=== PATIENT | female | born 1935 | race Caucasian/White ===

== ENCOUNTER 2017-04-06 04:26 | Emergency (ER) | payer MEDICARE ==
[~2017-04-06] VITALS: Ht 152.4 cm; Wt 100.0 kg
[~2017-04-06 04:26] MED LIST: CHOL100015 PO; LEVO25TA4 PO; LISI5TAB7 PO; NITR100C PO
[2017-04-06] MEDS ORDERED: ONDANSETRON 2MG/ML, 2ML ONE (04:50)
[2017-04-06] MEDS ORDERED: FAMOTIDINE 20 MG/2 ML ONE (04:50)
[2017-04-06] MEDS ORDERED: SODIUM CHLORIDE FLUSH 10ML SYR IVF ONE (05:00)
[2017-04-06] MEDS ORDERED: FAMOTIDINE 20 MG/2 ML IVP ONE (05:00)
[2017-04-06] MEDS ORDERED: SODIUM CHLORIDE 0.9% 1,000ML IVBOLUS ONE (05:00)
[2017-04-06] MEDS ORDERED: ONDANSETRON 2MG/ML, 2ML IVPush ONE (05:00)
[2017-04-06 05:29] LABS: CHLORIDE 112 mmol/L (98-107)
[2017-04-06 05:30] LABS: BASOPHILS % (AUTO) 0 % (0-1); EOSINOPHILS # (AUTO) 0.03 x10^3/uL (0-0.4); EOSINOPHILS % (AUTO) 0 % (1-7); LYMPHOCYTES # (AUTO) 0.14 x10^3/uL (1-3.4); LYMPHOCYTES % (AUTO) 2 % (22-44); MD NO; MEAN CORPUSCULAR HEMOGLOBIN 30.3 pg (27.0-34.8); MEAN CORPUSCULAR HGB CONC 33.8 g/dL (32.4-35.8); MEAN CORPUSCULAR VOLUME 89.7 fL (80-100); MEAN PLATELET VOLUME 8.8 fL (7.4-10.4); MONOCYTES # (AUTO) 0.26 x10^3/uL (0.2-0.8); MONOCYTES % (AUTO) 4 % (2-9); NEUTROPHILS # (AUTO) 6.86 x10^3/uL (1.8-6.8); NEUTROPHILS % (AUTO) 94 % (42-75); PLATELET COUNT 151 x10^3/uL (130-400); RED BLOOD COUNT 5.13 x10^6/uL (3.82-5.3); RED CELL DISTRIBUTION WIDTH 13.9 % (9.6-15.2)
[2017-04-06 05:33] VITALS: BP 118/59
[2017-04-06 05:42] LABS: ALANINE AMINOTRANSFERASE 14 U/L (12-78); ALBUMIN 3.4 g/dL (3.4-5.0); ALKALINE PHOSPHATASE 40 U/L (45-117); ANION GAP 10 mmol/L (5-15); BILIRUBIN,TOTAL 1.1 mg/dL (0.2-1.0); CALCIUM 7.8 mg/dL (8.5-10.1); CREATININE 0.95 mg/dL (0.55-1.02); TOTAL PROTEIN 6.1 g/dL (6.4-8.2)
== END 2017-04-06 09:14 | disposition home or self-care (01) ==
LOC: ED 07:11
DX: R11.2 Nausea with vomiting, unspecified (principal); R19.7 Diarrhea, unspecified; I10 Essential (primary) hypertension; Z90.49 Acquired absence of other specified parts of digestive tract; Z90.710 Acquired absence of both cervix and uterus
CPT/HCPCS: 36415; 80053; 83690; 85025; 96361; 96374; 96375; 99285; J2405; J7030; S0028

== ENCOUNTER 2017-08-14 18:22 | Emergency (ER) | payer MEDICARE ==
[~2017-08-14] VITALS: Ht 149.9 cm; Wt 58.4 kg
[2017-08-14] MEDS ORDERED: LISINOPRIL PO (18:46)
[2017-08-14 18:48] LABS: BASOPHILS # (AUTO) 0.02 x10^3/uL (0-0.1); BASOPHILS % (AUTO) 0 % (0-1); EOSINOPHILS # (AUTO) 0.06 x10^3/uL (0-0.4); EOSINOPHILS % (AUTO) 1 % (1-7); LYMPHOCYTES # (AUTO) 1.61 x10^3/uL (1-3.4); LYMPHOCYTES % (AUTO) 34 % (22-44); MD NO; MEAN CORPUSCULAR HEMOGLOBIN 30.8 pg (27.0-34.8); MEAN CORPUSCULAR HGB CONC 34.2 g/dL (32.4-35.8); MEAN PLATELET VOLUME 8.3 fL (7.4-10.4); MONOCYTES # (AUTO) 0.34 x10^3/uL (0.2-0.8); MONOCYTES % (AUTO) 7 % (2-9); NEUTROPHILS # (AUTO) 2.76 x10^3/uL (1.8-6.8); NEUTROPHILS % (AUTO) 58 % (42-75); PLATELET COUNT 175 x10^3/uL (130-400); RED BLOOD COUNT 4.83 x10^6/uL (3.82-5.3); RED CELL DISTRIBUTION WIDTH 13.7 % (9.6-15.2)
[2017-08-14] MEDS ORDERED: DEXAMETHASONE 4 MG/ML, 5ML ONE (18:56)
[2017-08-14 18:59] LABS: ALBUMIN 3.5 g/dL (3.4-5.0); ANION GAP 7 mmol/L (5-15); CALCIUM 8.8 mg/dL (8.5-10.1); CHLORIDE 107 mmol/L (98-107); CREATININE 0.97 mg/dL (0.55-1.02)
[2017-08-14] MEDS ORDERED: DEXAMETHASONE 4 MG/ML, 1ML IV ONE (19:00)
[2017-08-14] MEDS ORDERED: SODIUM CHLORIDE FLUSH 10ML SYR IVF ONE (19:00)
[2017-08-14] MEDS ORDERED: PLEASE ENTER HEIGHT AND WEIGHT MC SCH (19:00)
[2017-08-14 19:46] LABS: MICROSCOPIC AUTO
[2017-08-14 19:54] LABS: CULTURE INDICATED? NO
[2017-08-14 21:02] LABS: TROPONIN I < 0.015 ng/mL (0.000-0.045)
[2017-08-14 22:43] VITALS: BP 184/93
== END 2017-08-14 22:45 | disposition home or self-care (01) ==
LOC: ED 20:21
DX: J38.1 Polyp of vocal cord and larynx (principal); I10 Essential (primary) hypertension; Z90.49 Acquired absence of other specified parts of digestive tract; Z90.710 Acquired absence of both cervix and uterus
CPT/HCPCS: 36415; 70360; 71045; 80048; 81001; 82040; 83880; 84484; 85025; 85379; 93005; 96374; 99285; J1100

== ENCOUNTER 2017-08-16 20:29 | Emergency (ER) | payer MEDICARE ==
[~2017-08-16] VITALS: Ht 152.4 cm; Wt 56.8 kg
[~2017-08-16 20:29] MED LIST changes: +LISINOPRIL PO
[2017-08-16 21:52] LABS: BASOPHILS # (AUTO) 0.04 x10^3/uL (0-0.1); BASOPHILS % (AUTO) 1 % (0-1); EOSINOPHILS # (AUTO) 0.03 x10^3/uL (0-0.4); EOSINOPHILS % (AUTO) 1 % (1-7); LYMPHOCYTES # (AUTO) 2.75 x10^3/uL (1-3.4); LYMPHOCYTES % (AUTO) 46 % (22-44); MD NO; MEAN CORPUSCULAR HEMOGLOBIN 30.4 pg (27.0-34.8); MEAN CORPUSCULAR HGB CONC 33.9 g/dL (32.4-35.8); MEAN CORPUSCULAR VOLUME 89.8 fL (80-100); MEAN PLATELET VOLUME 8.4 fL (7.4-10.4); MONOCYTES # (AUTO) 0.48 x10^3/uL (0.2-0.8); MONOCYTES % (AUTO) 8 % (2-9); NEUTROPHILS # (AUTO) 2.67 x10^3/uL (1.8-6.8); NEUTROPHILS % (AUTO) 45 % (42-75); PLATELET COUNT 196 x10^3/uL (130-400); RED BLOOD COUNT 4.99 x10^6/uL (3.82-5.3); RED CELL DISTRIBUTION WIDTH 13.7 % (9.6-15.2)
[2017-08-16 22:01] LABS: ALBUMIN 3.5 g/dL (3.4-5.0); ANION GAP 9 mmol/L (5-15); CALCIUM 8.5 mg/dL (8.5-10.1); CHLORIDE 107 mmol/L (98-107); CREATININE 0.77 mg/dL (0.55-1.02)
[2017-08-16 23:56] VITALS: BP 135/75
== END 2017-08-16 23:58 | disposition home or self-care (01) ==
LOC: ED 22:20
DX: F41.1 Generalized anxiety disorder (principal); R09.81 Nasal congestion; I10 Essential (primary) hypertension
CPT/HCPCS: 36415; 71046; 80048; 82040; 83880; 85025; 93005; 99285

== ENCOUNTER 2017-08-18 11:42 | Emergency (ER) | payer MEDICARE ==
[~2017-08-18] VITALS: Ht 149.9 cm; Wt 55.0 kg
[2017-08-18 11:48] VITALS: BP 165/99
== END 2017-08-18 15:07 | disposition left against medical advice (07) ==
LOC: ED 15:01
DX: R03.0 Elevated blood-pressure reading, without diagnosis of hypertension (principal); Z88.0 Allergy status to penicillin; Z88.2 Allergy status to sulfonamides; Z88.6 Allergy status to analgesic agent
CPT/HCPCS: 99281

== ENCOUNTER 2017-09-07 10:51 | Inpatient (IN) | payer MEDICARE ==
[~2017-09-07] VITALS: Ht 152.4 cm; Wt 58.0 kg
[2017-09-07] MEDS ORDERED: LACTATED RINGERS 1,000 ML IV SCH (11:20)
[2017-09-07] MEDS ORDERED: EPINEPHRINE TOPICAL SOLN 1 MG/ML, 30ML ONE (13:31)
[2017-09-07] MEDS ORDERED: FENTANYL PF 250 MCG/5ML ONE (13:31)
[2017-09-07] MEDS ORDERED: KETAMINE 10 MG/ML, 20ML ONE (13:31)
[2017-09-07] MEDS ORDERED: MIDAZOLAM 1 MG/ML, 2ML ONE (13:31)
[2017-09-07] MEDS ORDERED: PROPOFOL 10 MG/ML, 20ML ONE (13:32)
[2017-09-07] MEDS ORDERED: LIDOCAINE-MPF 2% ,5ML ONE (13:32)
[2017-09-07] MEDS ORDERED: ROCURONIUM 10MG/ML,5ML ONE (13:33)
[2017-09-07] MEDS ORDERED: FENTANYL PF 100 MCG/2ML ONE (13:52)
[2017-09-07] MEDS ORDERED: ONDANSETRON 2MG/ML, 2ML ONE (13:54)
[2017-09-07] MEDS ORDERED: DEXAMETHASONE 4 MG/ML, 1ML ONE (13:54)
[2017-09-07] MEDS ORDERED: LABETALOL 5MG/ML, 20ML IV PRN (14:30)
[2017-09-07] MEDS ORDERED: METOPROLOL 1 MG/ML, 5ML IV PRN (14:30)
[2017-09-07] MEDS ORDERED: MORPHINE SULFATE 4 MG/ML, 1ML IVPush PRN (14:30)
[2017-09-07] MEDS ORDERED: FENTANYL PF 100 MCG/2ML IV PRN (14:30)
[2017-09-07] MEDS ORDERED: ALBUTEROL SULFATE 2.5 MG/3 ML NPPB PRN (14:30)
[2017-09-07] MEDS ORDERED: EPHEDRINE 50 MG/ML, 1ML IVPush PRN (14:30)
[2017-09-07] MEDS ORDERED: ACETAMINOPHEN 325 MG TABLET PO PRN (14:30)
[2017-09-07] MEDS ORDERED: OXYcodone 5 MG/5 ML ORAL.SOL UDC PO PRN (14:30)
[2017-09-07] MEDS ORDERED: PROMETHAZINE 25 MG/ML, 1ML IV PRN (14:30)
[2017-09-07] MEDS ORDERED: hydrALAzine 20 MG/ML, 1ML IV PRN (14:30)
[2017-09-07 16:30] VITALS: BP 136/82
[2017-09-07] MEDS ORDERED: ACETAMINOPHEN 500 MG TABLET PO PRN (17:00)
[2017-09-07] MEDS ORDERED: ONDANSETRON 4 MG TABLET PO PRN (17:00)
[2017-09-07 20:06] VITALS: BP 136/83
[2017-09-07] MEDS: D5%-0.45% NACL 1,000 ML IV SCH (21:00)
[2017-09-07 23:41] VITALS: BP 106/64
[2017-09-08 02:47] VITALS: BP 125/74
[2017-09-08 07:11] VITALS: BP 105/66
[2017-09-08] MEDS ORDERED: LISINOPRIL 5 MG TABLET PO SCH (09:00)
[2017-09-08] MEDS: D5%-0.45% NACL 1,000 ML IV SCH (12:00)
[2017-09-08 13:14] VITALS: BP 126/76
[2017-09-08] MEDS ORDERED: ACETAMINOPHEN 500 MG TABLET PO PRN (15:00)
== END 2017-09-08 18:30 | disposition home or self-care (01) | DRG 134 ==
LOC: OUT 10:51 → 4NOR 16:20 → OUT 16:32 → 4NOR 16:33
PROVIDERS: ADMIT Otolaryngology; ATTEND Otolaryngology
PROC: 0C5V8ZZ Destruction of Left Vocal Cord, Via Natural or Artificial Opening Endoscopic (ICD-10-PCS; 2017-09-07)
PROC: 0C5T8ZZ Destruction of Right Vocal Cord, Via Natural or Artificial Opening Endoscopic (ICD-10-PCS; 2017-09-07)
PROC: 0CBT8ZX Excision of Right Vocal Cord, Via Natural or Artificial Opening Endoscopic, Diagnostic (ICD-10-PCS; 2017-09-07)
PROC: 0CBV8ZX Excision of Left Vocal Cord, Via Natural or Artificial Opening Endoscopic, Diagnostic (ICD-10-PCS; principal; 2017-09-07 13:45)
DX: D14.1 Benign neoplasm of larynx (principal); J38.3 Other diseases of vocal cords
CPT/HCPCS: 88305; J1100; J2250; J2405; J2704; J3010; J3490; J7120

== ENCOUNTER 2017-09-20 04:58 | Emergency (ER) | payer MEDICARE ==
[~2017-09-20] VITALS: Ht 152.4 cm; Wt 56.9 kg
[2017-09-20 05:00] VITALS: BP 191/97
[2017-09-20 05:46] LABS: BASOPHILS # (AUTO) 0.02 x10^3/uL (0-0.1); BASOPHILS % (AUTO) 0 % (0-1); EOSINOPHILS % (AUTO) 2 % (1-7); LYMPHOCYTES # (AUTO) 1.72 x10^3/uL (1-3.4); LYMPHOCYTES % (AUTO) 35 % (22-44); MD NO; MEAN CORPUSCULAR HEMOGLOBIN 30.1 pg (27.0-34.8); MEAN CORPUSCULAR HGB CONC 33.4 g/dL (32.4-35.8); MEAN CORPUSCULAR VOLUME 90.3 fL (80-100); MEAN PLATELET VOLUME 7.8 fL (7.4-10.4); MONOCYTES # (AUTO) 0.35 x10^3/uL (0.2-0.8); MONOCYTES % (AUTO) 7 % (2-9); NEUTROPHILS % (AUTO) 55 % (42-75); PLATELET COUNT 188 x10^3/uL (130-400); RED BLOOD COUNT 4.95 x10^6/uL (3.82-5.3); RED CELL DISTRIBUTION WIDTH 13.5 % (9.6-15.2)
[2017-09-20 05:49] LABS: MICROSCOPIC AUTO
[2017-09-20 05:52] LABS: CULTURE INDICATED? YES
[2017-09-20 05:56] LABS: ALBUMIN 3.7 g/dL (3.4-5.0); ANION GAP 7 mmol/L (5-15); CALCIUM 8.6 mg/dL (8.5-10.1); CHLORIDE 107 mmol/L (98-107); CREATININE 0.72 mg/dL (0.55-1.02)
[2017-09-20] MEDS ORDERED: CEFTRIAXONE 1,000 MG IM ONE (06:00)
[2017-09-20] MEDS ORDERED: CEFTRIAXONE 1,000 MG ONE (06:02)
== END 2017-09-20 06:18 | disposition home or self-care (01) ==
LOC: ED 05:32
DX: N30.90 Cystitis, unspecified without hematuria (principal)
CPT/HCPCS: 36415; 80048; 81001; 82040; 85025; 87077; 87086; 87186; 96372; 99284; J0696

== ENCOUNTER 2018-02-12 04:15 | Emergency (ER) | payer MEDICARE ==
[~2018-02-12] VITALS: Ht 152.4 cm; Wt 52.0 kg
[2018-02-12] MEDS ORDERED: DORZ10DR28 EACHEYE (04:42)
[2018-02-12] MEDS ORDERED: PRED10TA PO (04:42)
[2018-02-12] MEDS ORDERED: ERGO500017 PO (04:42)
[2018-02-12] MEDS ORDERED: ONDANSETRON ODT 4 MG PO ONE (05:30)
[2018-02-12 05:55] LABS: BASOPHILS # (AUTO) 0.01 x10^3/uL (0-0.1); BASOPHILS % (AUTO) 0 % (0-1); EOSINOPHILS % (AUTO) 0 % (1-7); LYMPHOCYTES % (AUTO) 23 % (22-44); MD NO; MEAN CORPUSCULAR HEMOGLOBIN 29.8 pg (27.0-34.8); MEAN CORPUSCULAR HGB CONC 33.6 g/dL (32.4-35.8); MEAN CORPUSCULAR VOLUME 88.8 fL (80-100); MEAN PLATELET VOLUME 8.5 fL (7.4-10.4); MONOCYTES # (AUTO) 0.21 x10^3/uL (0.2-0.8); MONOCYTES % (AUTO) 4 % (2-9); NEUTROPHILS # (AUTO) 4.21 x10^3/uL (1.8-6.8); NEUTROPHILS % (AUTO) 73 % (42-75); PLATELET COUNT 214 x10^3/uL (130-400); RED BLOOD COUNT 5.22 x10^6/uL (3.82-5.3); RED CELL DISTRIBUTION WIDTH 13.8 % (9.6-15.2)
[2018-02-12 06:01] LABS: ALBUMIN 3.7 g/dL (3.4-5.0); ANION GAP 10 mmol/L (5-15); CALCIUM 8.3 mg/dL (8.5-10.1); CHLORIDE 106 mmol/L (98-107); CREATININE 0.63 mg/dL (0.55-1.02)
[2018-02-12 06:05] LABS: MICROSCOPIC AUTO
[2018-02-12 06:12] LABS: CULTURE INDICATED? NO
[2018-02-12] MEDS ORDERED: ONDANSETRON ODT 4 MG ONE (06:15)
[2018-02-12 07:59] VITALS: BP 138/78
[2018-02-12 08:07] LABS: TROPONIN I < 0.015 ng/mL (0.000-0.045)
== END 2018-02-12 08:52 | disposition home or self-care (01) ==
LOC: ED 04:18
DX: R35.0 Frequency of micturition (principal); R42 Dizziness and giddiness; M54.5 Low back pain; I10 Essential (primary) hypertension; F41.1 Generalized anxiety disorder; J45.909 Unspecified asthma, uncomplicated; Z86.39 Personal history of other endocrine, nutritional and metabolic disease
CPT/HCPCS: 36415; 71045; 80048; 81001; 82040; 83605; 83880; 84484; 85025; 87040; 93005; 99284; Q0162

== ENCOUNTER 2018-05-24 03:58 | Inpatient (IN) | payer MEDICARE ==
[~2018-05-24] VITALS: Ht 152.4 cm; Wt 59.3 kg
[~2018-05-24 03:58] MED LIST changes: +DORZ10DR28 EACHEYE; +ERGO500017 PO; +PRED10TA PO
[2018-05-24] MEDS ORDERED: MAALOX/HYOSCYAMINE/LIDOCAINE 45 ML BTL ONE (04:40)
[2018-05-24] MEDS ORDERED: ASPIRIN 81 MG TABLET CHEW ONE (04:40)
[2018-05-24] MEDS ORDERED: ACETAMINOPHEN 325 MG TABLET ONE (04:40)
[2018-05-24] MEDS ORDERED: ACETAMINOPHEN 325 MG TABLET PO ONE (05:00)
[2018-05-24] MEDS ORDERED: ASPIRIN 81 MG TABLET CHEW PO ONE (05:00)
[2018-05-24] MEDS ORDERED: MAALOX/HYOSCYAMINE/LIDOCAINE 45 ML BTL PO ONE (05:00)
[2018-05-24 05:10] LABS: BASOPHILS # (AUTO) 0.01 x10^3/uL (0-0.1); BASOPHILS % (AUTO) 0 % (0-1); EOSINOPHILS # (AUTO) 0.07 x10^3/uL (0-0.4); EOSINOPHILS % (AUTO) 2 % (1-7); LYMPHOCYTES # (AUTO) 1.98 x10^3/uL (1-3.4); LYMPHOCYTES % (AUTO) 50 % (22-44); MD NO; MEAN CORPUSCULAR HEMOGLOBIN 29.8 pg (27.0-34.8); MEAN CORPUSCULAR HGB CONC 33.4 g/dL (32.4-35.8); MEAN CORPUSCULAR VOLUME 89.3 fL (80-100); MEAN PLATELET VOLUME 8.2 fL (7.4-10.4); MONOCYTES # (AUTO) 0.28 x10^3/uL (0.2-0.8); MONOCYTES % (AUTO) 7 % (2-9); NEUTROPHILS # (AUTO) 1.61 x10^3/uL (1.8-6.8); NEUTROPHILS % (AUTO) 41 % (42-75); PLATELET COUNT 150 x10^3/uL (130-400); RED CELL DISTRIBUTION WIDTH 13.4 % (9.6-15.2)
[2018-05-24 05:15] LABS: INTERNATIONAL NORMALIZED RATIO 0.95 (0.93-1.1)
[2018-05-24 05:18] LABS: ALANINE AMINOTRANSFERASE 17 U/L (12-78); ALBUMIN 3.6 g/dL (3.4-5.0); ANION GAP 8 mmol/L (5-15); CALCIUM 8.2 mg/dL (8.5-10.1); CHLORIDE 108 mmol/L (98-107); CREATININE 0.71 mg/dL (0.55-1.02)
--- NOTE | 2018-05-24 05:20 | NUR ---
PT GIVEN BARE HUGGER PER REQUEST. POC DISCUSSED. PT DENIES FURTHER NEEDS AT THIS TIME.
[2018-05-24 05:23] LABS: ALKALINE PHOSPHATASE 41 U/L (45-117); TOTAL PROTEIN 6.4 g/dL (6.4-8.2); TROPONIN I < 0.015 ng/mL (0.000-0.045)
[2018-05-24 07:34] VITALS: BP 162/84
[2018-05-24] MEDS ORDERED: LISI5TAB7 PO (08:53)
[2018-05-24 08:55] VITALS: BP 141/85
[2018-05-24] MEDS ORDERED: SODIUM CHLORIDE 0.9% 1,000 ML IV SCH (09:08)
[2018-05-24] MEDS ORDERED: POLYETHYLENE GLYCOL 17 GM PACKET PO PRN (09:30)
[2018-05-24] MEDS ORDERED: PROMETHAZINE 25 MG/ML, 1ML IM PRN (09:30)
[2018-05-24] MEDS ORDERED: hydrALAzine 20 MG/ML, 1ML IVPush PRN (09:30)
[2018-05-24] MEDS ORDERED: ACETAMINOPHEN 325 MG TABLET PO PRN (09:30)
[2018-05-24] MEDS ORDERED: ONDANSETRON ODT 4 MG PO PRN (09:30)
[2018-05-24] MEDS ORDERED: BISACODYL 10 MG SUPP PR PRN (09:30)
[2018-05-24] MEDS ORDERED: OXYcodone/APAP 5/325MG TABLET PO PRN (09:30)
[2018-05-24] MEDS ORDERED: POTASSIUM CHLORIDE 40 MEQ in SODIUM CHLORIDE 0.9% 500 ML IV ONE (09:30)
[2018-05-24] MEDS ORDERED: DOCUSATE 100 MG CAPSULE PO PRN (09:30)
[2018-05-24] MEDS ORDERED: morphine SULFATE 10 MG/ML, 1ML IVPush PRN (09:30)
[2018-05-24] MEDS ORDERED: ONDANSETRON 2MG/ML, 2ML IVPush PRN (09:30)
[2018-05-24] MEDS ORDERED: NITROGLYCERIN 0.4 MG BOTTLE (25 TABS) SL PRN (09:30)
[2018-05-24] MEDS ORDERED: LABETALOL 5MG/ML, 20ML IVPush PRN (09:30)
[2018-05-24] MEDS ORDERED: OMNIPAQUE 350 MG/ML, 100ML BOTTLE ONE (10:22)
[2018-05-24 11:15] LABS: FREE T4 (FREE THYROXINE) 0.94 ng/dL (0.76-1.46); TROPONIN I < 0.015 ng/mL (0.000-0.045)
[2018-05-24] MEDS ORDERED: REGADENOSON 0.4 MG/5 ML SYRINGE ONE (12:01)
[2018-05-24 13:59] VITALS: BP 129/78
[2018-05-24] MEDS ORDERED: ACETAMINOPHEN 500 MG TABLET PO ONE (14:00)
[2018-05-24] MEDS: LISINOPRIL 5 MG TABLET PO SCH (14:09)
[2018-05-24] MEDS: ACETAMINOPHEN 500 MG TABLET PO SCH ×2 (14:09→20:54)
[2018-05-24 16:06] LABS: MICROSCOPIC AUTO
[2018-05-24 16:07] LABS: TROPONIN I < 0.015 ng/mL (0.000-0.045)
[2018-05-24 16:15] LABS: CULTURE INDICATED? NO
[2018-05-24 19:31] VITALS: BP 137/82
[2018-05-25 01:05] VITALS: BP 111/62
[2018-05-25 05:22] LABS: BASOPHILS # (AUTO) 0.01 x10^3/uL (0-0.1); BASOPHILS % (AUTO) 0 % (0-1); EOSINOPHILS # (AUTO) 0.07 x10^3/uL (0-0.4); EOSINOPHILS % (AUTO) 2 % (1-7); LYMPHOCYTES % (AUTO) 44 % (22-44); MD NO; MEAN CORPUSCULAR HEMOGLOBIN 30.7 pg (27.0-34.8); MEAN CORPUSCULAR HGB CONC 34.1 g/dL (32.4-35.8); MEAN PLATELET VOLUME 8.3 fL (7.4-10.4); MONOCYTES # (AUTO) 0.28 x10^3/uL (0.2-0.8); MONOCYTES % (AUTO) 8 % (2-9); NEUTROPHILS # (AUTO) 1.57 x10^3/uL (1.8-6.8); NEUTROPHILS % (AUTO) 46 % (42-75); PLATELET COUNT 139 x10^3/uL (130-400); RED CELL DISTRIBUTION WIDTH 13.6 % (9.6-15.2)
[2018-05-25 05:31] LABS: ALANINE AMINOTRANSFERASE 18 U/L (12-78); ANION GAP 5 mmol/L (5-15); CALCIUM 8.1 mg/dL (8.5-10.1); CHLORIDE 111 mmol/L (98-107); CREATININE 0.67 mg/dL (0.55-1.02)
[2018-05-25 05:34] LABS: ALKALINE PHOSPHATASE 43 U/L (45-117); BILIRUBIN,TOTAL 0.6 mg/dL (0.2-1.0); CHOL/HDL RATIO 3.5; CHOLESTEROL, TOTAL 227 mg/dL (140-239); HDL CHOL % 28 % (28-40); HDL CHOLESTEROL (DIRECT) 64 mg/dL (40-60); LDL CHOLESTEROL,CALCULATED 130 mg/dL (54-169); TOTAL PROTEIN 5.9 g/dL (6.4-8.2); TRIGLYCERIDES 165 mg/dL (50-200); VLDL CHOLESTEROL 33 mg/dL (0-25)
[2018-05-25] MEDS ORDERED: ASPIRIN 325 MG TABLET EC PO SCH (06:00)
[2018-05-25 07:20] VITALS: BP 121/74
[2018-05-25] MEDS: ACETAMINOPHEN 500 MG TABLET PO SCH (08:25)
[2018-05-25] MEDS: LISINOPRIL 5 MG TABLET PO SCH (08:25)
[2018-05-25] MEDS ORDERED: ACET500T71 PO (12:01)
[2018-05-25] MEDS ORDERED: OMEP-110 PO (12:03)
[2018-05-25] MEDS ORDERED: OMEPRAZOLE 20 MG CAPSULE.DR PO SCH (12:30)
== END 2018-05-25 13:39 | disposition home or self-care (01) | DRG 303 ==
LOC: ED 05:12 → EDIP 06:13 → 5SO 06:52 → DCLOUNGE 05-25 13:20
PROVIDERS: ADMIT Hospitalist; ATTEND Hospitalist
DX: I25.10 Atherosclerotic heart disease of native coronary artery without angina pectoris (principal); E87.6 Hypokalemia; F41.9 Anxiety disorder, unspecified; H40.9 Unspecified glaucoma; I10 Essential (primary) hypertension; J45.909 Unspecified asthma, uncomplicated; R31.9 Hematuria, unspecified; R06.02 Shortness of breath; K21.9 Gastro-esophageal reflux disease without esophagitis; M81.0 Age-related osteoporosis without current pathological fracture; Z80.0 Family history of malignant neoplasm of digestive organs; Z83.3 Family history of diabetes mellitus; Z90.710 Acquired absence of both cervix and uterus; Z90.49 Acquired absence of other specified parts of digestive tract; Z88.2 Allergy status to sulfonamides
CPT/HCPCS: 36415; 71045; 71275; 78452; 80053; 80061; 81001; 83036; 83690; 83735; 83880; 84439; 84443; 84484; 85025; 85610; 85730; 93005; 93017; 93306; 99285; G0378; J2785; J3480; Q9967; A9502; J7040

== ENCOUNTER 2018-05-26 16:57 | Emergency (ER) | payer MEDICARE ==
[~2018-05-26] VITALS: Ht 149.9 cm; Wt 57.8 kg
[~2018-05-26 16:57] MED LIST changes: +ACET500T71 PO; +OMEP-110 PO
[2018-05-26 17:50] LABS: ANION GAP 5 mmol/L (5-15); BASOPHILS # (AUTO) 0.02 x10^3/uL (0-0.1); BASOPHILS % (AUTO) 1 % (0-1); CALCIUM 8.7 mg/dL (8.5-10.1); CHLORIDE 108 mmol/L (98-107); CREATININE 0.78 mg/dL (0.55-1.02); EOSINOPHILS % (AUTO) 2 % (1-7); LYMPHOCYTES % (AUTO) 36 % (22-44); MD NO; MEAN CORPUSCULAR HEMOGLOBIN 30.5 pg (27.0-34.8); MEAN CORPUSCULAR HGB CONC 34.3 g/dL (32.4-35.8); MEAN CORPUSCULAR VOLUME 89.1 fL (80-100); MEAN PLATELET VOLUME 8.1 fL (7.4-10.4); MONOCYTES # (AUTO) 0.34 x10^3/uL (0.2-0.8); MONOCYTES % (AUTO) 8 % (2-9); NEUTROPHILS # (AUTO) 2.42 x10^3/uL (1.8-6.8); NEUTROPHILS % (AUTO) 54 % (42-75); PLATELET COUNT 178 x10^3/uL (130-400); RED BLOOD COUNT 5.17 x10^6/uL (3.82-5.3); RED CELL DISTRIBUTION WIDTH 13.6 % (9.6-15.2)
--- NOTE | 2018-05-26 17:57 | NUR ---
CALL PERSON: PT TO ROOM FROM LOBBY VIA WHEELCHAIR
--- NOTE | 2018-05-26 18:23 | NUR ---
TASK RN: PT SITTING UP IN [place] NOTED. PWD. PT CO ELEVATED BP AT HOME, 169/97 DESPITE TAKING RX'D LISINOPRIL. PT REPORTS TAKING 5MG THIS AM, THEN AN ADDITIONAL 15MG AT 1200 AFTER SEEING PCP RX WAS CHANGED TO 20MG AT APPOINTMENT. PT REPORTS "FEELING BAD" AFTER DESPITE MEDS: DIZZINESS/IBRAHIM. PT DENIES CP/SOB. BP EQUAL BILAT. PT REPORTS DC FROM INPATIENT ADMIT AT [facility] YESTERDAY FOR CONTROL OF BP. FACE SYMMETRICAL, SPEECH CLEAR, +STRENGTH X4. BP/SPO2/ECG MONITORING IN PLACE. NSR ON MONITOR.
--- NOTE | 2018-05-26 18:39 | NUR ---
TASK RN: ERP AT BEDSIDE FOR INITIAL ASSESSMENT
[2018-05-26] MEDS ORDERED: ACETAMINOPHEN 500 MG TABLET ONE (18:44)
--- NOTE | 2018-05-26 18:46 | NUR ---
TASK RN: MEDICATION REQUESTED FROM PHARMACY
[2018-05-26] MEDS ORDERED: ACETAMINOPHEN 500 MG TABLET PO ONE (19:00)
--- NOTE | 2018-05-26 19:01 | NUR ---
report received from task RN Loraine, this RN assuming care at this time.
--- NOTE | 2018-05-26 19:12 | NUR ---
PT UP TO BATHROOM TO VOID, GAIT STEADY. AWAITING HYDRALAZINE FROM PHARMACY.
--- NOTE | 2018-05-26 19:32 | NUR ---
pt reports headache level 8/10, present x 4 days. pt medicated per emar, tolerated well. pt a&ox4, resps even and unlabored, neuro intact. no drift, bilateral grasp equal strength, all extremity strength 5/5. pupils equal round and reactive. all monitors in place. call light in reach.
[2018-05-26] MEDS ORDERED: ENALAPRILAT 1.25 MG/ML, 2ML ONE (20:24)
[2018-05-26] MEDS ORDERED: ENALAPRILAT 1.25 MG/ML, 2ML IV ONE (20:30)
[2018-05-26] MEDS ORDERED: METOCLOPRAMIDE 5 MG/ML, 2ML IVPush ONE (20:30)
[2018-05-26] MEDS ORDERED: DIPHENHYDRAMINE 50 MG/ML, 1ML IVPush ONE (20:30)
[2018-05-26] MEDS ORDERED: DIPHENHYDRAMINE 50 MG/ML, 1ML ONE (20:33)
[2018-05-26] MEDS ORDERED: METOCLOPRAMIDE 5 MG/ML, 2ML ONE (20:33)
--- NOTE | 2018-05-26 20:39 | NUR ---
edmd law informed pt's bp now 176/83, however headache is unimproved; instructed RN to hold vasotec and administer benadryl and reglan for headache.
--- NOTE | 2018-05-26 21:24 | NUR ---
pt reports headache is resolved. bp 183/56, EDMD Law informed.
[2018-05-26 22:24] VITALS: BP 183/88
--- NOTE | 2018-05-26 22:25 | NUR ---
pt given dc instructions and script. pt educated regarding rx for lisinopril. pt a&o, resps even and unlabored, nsr on lunchroom monitor. piv dc'd with tip intact. pt states "I'm feeling much better." pt provided with cab voucher home at request. noel at dc.
== END 2018-05-26 22:26 | disposition home or self-care (01) ==
LOC: ED 22:03
DX: I10 Essential (primary) hypertension (principal)
CPT/HCPCS: 36415; 80048; 82040; 85025; 93005; 96374; 96375; 99284; J1200; J2765

== ENCOUNTER 2018-06-02 12:11 | Emergency (ER) | payer MEDICARE ==
[~2018-06-02] VITALS: Ht 152.4 cm; Wt 57.0 kg
--- NOTE | 2018-06-02 12:51 | NUR ---
PT C/O IBRAHIM FOR 3 HOURS WITH RECENT ADMISSION FOR UNCONTROLLED HTN. PT WAS SEEN BY DR. BARROS AND STARTED ON NEW REGIMEN FOR BP THAT WAS STARTED YESTERDAY. PT SEEN BY DR. COFFEY.
[2018-06-02] MEDS ORDERED: LISI-170 PO (12:55)
[2018-06-02] MEDS ORDERED: AMLO-150 PO (12:55)
[2018-06-02] MEDS ORDERED: HYDROCHLOROTH12.5 MG PO (12:55)
[2018-06-02] MEDS ORDERED: ACETAMINOPHEN 325 MG TABLET PO ONE (13:00)
[2018-06-02] MEDS ORDERED: DIPHENHYDRAMINE 50 MG/ML, 1ML IVPush ONE (13:00)
[2018-06-02] MEDS ORDERED: METOCLOPRAMIDE 5 MG/ML, 2ML IVPush ONE (13:00)
[2018-06-02] MEDS ORDERED: DIPHENHYDRAMINE 50 MG/ML, 1ML ONE (13:08)
[2018-06-02] MEDS ORDERED: METOCLOPRAMIDE 5 MG/ML, 2ML ONE (13:08)
[2018-06-02] MEDS ORDERED: ACETAMINOPHEN 325 MG TABLET ONE (13:09)
[2018-06-02 13:22] LABS: ALBUMIN 4.1 g/dL (3.4-5.0); ANION GAP 6 mmol/L (5-15); CALCIUM 8.8 mg/dL (8.5-10.1); CHLORIDE 105 mmol/L (98-107); CREATININE 0.83 mg/dL (0.55-1.02)
--- NOTE | 2018-06-02 13:30 | NUR ---
PT MEDICATED ORDERED. WAITING FOR LAB RESULTS.
--- NOTE | 2018-06-02 13:49 | NUR ---
CHART UP FOR MD RECHECK. PT AWARE.
[2018-06-02 14:14] VITALS: BP 134/72
== END 2018-06-02 14:19 | disposition home or self-care (01) ==
LOC: ED 14:13
DX: I10 Essential (primary) hypertension (principal); R51 Headache; J45.909 Unspecified asthma, uncomplicated
CPT/HCPCS: 36415; 80048; 82040; 93005; 96374; 96375; 99284; J1200; J2765

== ENCOUNTER 2018-06-08 00:32 | Emergency (ER) | payer MEDICARE ==
[~2018-06-08] VITALS: Ht 152.4 cm; Wt 57.5 kg
[~2018-06-08 00:32] MED LIST changes: +AMLO-150 PO; +HYDROCHLOROTH12.5 MG PO; +LISI-170 PO
--- NOTE | 2018-06-08 00:44 | NUR ---
BIB [facility] d/t nausea with diarrhea today after 2 pm pt ate donuts then start diarrhea x4 until now pt took imodium x2 but not better hx htn dr leija at bedside
[2018-06-08 01:19] LABS: BASOPHILS # (AUTO) 0.01 x10^3/uL (0-0.1); BASOPHILS % (AUTO) 0 % (0-1); EOSINOPHILS # (AUTO) 0.11 x10^3/uL (0-0.4); EOSINOPHILS % (AUTO) 3 % (1-7); LYMPHOCYTES # (AUTO) 1.86 x10^3/uL (1-3.4); LYMPHOCYTES % (AUTO) 42 % (22-44); MD NO; MEAN CORPUSCULAR HEMOGLOBIN 30.5 pg (27.0-34.8); MEAN CORPUSCULAR HGB CONC 34.6 g/dL (32.4-35.8); MEAN CORPUSCULAR VOLUME 88.2 fL (80-100); MEAN PLATELET VOLUME 8.1 fL (7.4-10.4); MONOCYTES # (AUTO) 0.36 x10^3/uL (0.2-0.8); MONOCYTES % (AUTO) 8 % (2-9); NEUTROPHILS # (AUTO) 2.11 x10^3/uL (1.8-6.8); NEUTROPHILS % (AUTO) 47 % (42-75); PLATELET COUNT 204 x10^3/uL (130-400); RED BLOOD COUNT 4.83 x10^6/uL (3.82-5.3); RED CELL DISTRIBUTION WIDTH 13.4 % (9.6-15.2)
[2018-06-08 01:29] LABS: ALANINE AMINOTRANSFERASE 22 U/L (12-78); ANION GAP 9 mmol/L (5-15); CALCIUM 8.6 mg/dL (8.5-10.1); CHLORIDE 100 mmol/L (98-107); CREATININE 0.83 mg/dL (0.55-1.02)
[2018-06-08 01:33] LABS: ALKALINE PHOSPHATASE 54 U/L (45-117); TOTAL PROTEIN 6.6 g/dL (6.4-8.2); TROPONIN I < 0.015 ng/mL (0.000-0.045)
[2018-06-08 02:14] VITALS: BP 159/91
== END 2018-06-08 02:16 | disposition home or self-care (01) ==
LOC: ED 00:55
DX: R19.7 Diarrhea, unspecified (principal); I10 Essential (primary) hypertension; J45.909 Unspecified asthma, uncomplicated; Z90.89 Acquired absence of other organs; Z90.49 Acquired absence of other specified parts of digestive tract; Z90.710 Acquired absence of both cervix and uterus
CPT/HCPCS: 36415; 71045; 80053; 84484; 85025; 93005; 99284

== ENCOUNTER 2018-08-17 05:17 | Emergency (ER) | payer MEDICARE, OTHER ==
[~2018-08-17] VITALS: Ht 152.4 cm; Wt 54.5 kg
[2018-08-17] MEDS ORDERED: MECLIZINE CHEWABLE 25 MG TAB PO ONE (05:30)
[2018-08-17] MEDS ORDERED: ONDANSETRON ODT 4 MG PO ONE (05:30)
--- NOTE | 2018-08-17 05:34 | NUR ---
PT. AMBULATED DOWN HEADLEY TO BATHROOM WITH STEADY GAIT. URINE SAMPLE COLLECTED PT. C/O INCREASED FREQUENCY WITH URINATION AND "I THINK I HAVE A BLADDER INFECTION".
[2018-08-17] MEDS ORDERED: ONDANSETRON ODT 4 MG ONE (05:40)
[2018-08-17] MEDS ORDERED: MECLIZINE CHEWABLE 25 MG TAB ONE (05:40)
--- NOTE | 2018-08-17 05:43 | NUR ---
PT. AMBULATORY BACK TO ROOM AND ALL MONITORS REPLACED. CALL LIGHT IN REACH. ALL SAFETY MEASURES OBSERVED. PT. MEDICATED PER MAY. LAB AT FOR BLOOD DRAW. URINE HAS BEEN SENT TO LAB.
[2018-08-17 05:49] LABS: MICROSCOPIC AUTO
[2018-08-17 05:50] LABS: CULTURE INDICATED? YES
[2018-08-17] MEDS ORDERED: hydrALAzine 20 MG/ML, 1ML ONE (05:58)
[2018-08-17 06:00] LABS: BASOPHILS # (AUTO) 0.02 x10^3/uL (0-0.1); BASOPHILS % (AUTO) 1 % (0-1); EOSINOPHILS # (AUTO) 0.19 x10^3/uL (0-0.4); EOSINOPHILS % (AUTO) 5 % (1-7); LYMPHOCYTES # (AUTO) 1.61 x10^3/uL (1-3.4); LYMPHOCYTES % (AUTO) 41 % (22-44); MD NO; MEAN CORPUSCULAR HEMOGLOBIN 29.7 pg (27.0-34.8); MEAN CORPUSCULAR HGB CONC 32.5 g/dL (32.4-35.8); MEAN CORPUSCULAR VOLUME 91.5 fL (80-100); MEAN PLATELET VOLUME 8.1 fL (7.4-10.4); MONOCYTES # (AUTO) 0.31 x10^3/uL (0.2-0.8); MONOCYTES % (AUTO) 8 % (2-9); NEUTROPHILS # (AUTO) 1.79 x10^3/uL (1.8-6.8); NEUTROPHILS % (AUTO) 46 % (42-75); PLATELET COUNT 181 x10^3/uL (130-400); RED BLOOD COUNT 5.11 x10^6/uL (3.82-5.3); RED CELL DISTRIBUTION WIDTH 13.8 % (9.6-15.2)
[2018-08-17] MEDS ORDERED: hydrALAzine 20 MG/ML, 1ML IV ONE (06:00)
--- NOTE | 2018-08-17 06:03 | NUR ---
PT. BACK FROM CT AT THIS TIME.
--- NOTE | 2018-08-17 06:07 | NUR ---
VS UPDATED AND B/P IMPROVED. PER DR. COFFEY HOLD B/P MED. PT. REPORTS DIZZINESS AND NAUSEA HAVE RESOLVED AFTER MEDS. DENIES NEEDS.
[2018-08-17 06:11] LABS: ANION GAP 6 mmol/L (5-15); CALCIUM 8.4 mg/dL (8.5-10.1); CHLORIDE 107 mmol/L (98-107); CREATININE 0.84 mg/dL (0.55-1.02)
--- NOTE | 2018-08-17 06:41 | NUR ---
PT. AMBULATORY DOWN HEDALEY TO BR WITH STEADY GAIT.
--- NOTE | 2018-08-17 06:42 | NUR ---
CHART UP FOR RECHECK BY ERP.
--- NOTE | 2018-08-17 06:57 | NUR ---
REPORT TO UVALDO HANKS AND UVALDO SCHWARTZ.
[2018-08-17] MEDS ORDERED: LISINOPRIL 10 MG TABLET ONE (06:59)
[2018-08-17] MEDS ORDERED: LISINOPRIL 10 MG TABLET PO ONE (07:00)
--- NOTE | 2018-08-17 07:03 | NUR ---
MEDICATED PER EMAR
[2018-08-17 07:47] VITALS: BP 170/77
[2018-08-17] MEDS ORDERED: LISI-170 PO (07:50)
== END 2018-08-17 08:34 | disposition home or self-care (01) ==
LOC: ED 06:20
DX: R42 Dizziness and giddiness (principal); I10 Essential (primary) hypertension; Z90.49 Acquired absence of other specified parts of digestive tract; Z90.710 Acquired absence of both cervix and uterus; Z79.899 Other long term (current) drug therapy; Z88.8 Allergy status to other drugs, medicaments and biological substances
CPT/HCPCS: 36415; 70450; 71046; 80048; 81001; 85025; 87086; 93005; 99284; Q0162

== ENCOUNTER 2018-08-26 21:10 | Emergency (ER) | payer MEDICARE, OTHER ==
[~2018-08-26] VITALS: Ht 152.4 cm; Wt 60.0 kg
--- NOTE | 2018-08-26 21:10 | NUR ---
BIB FROM HOME W/ CO SUDDEN ONSET L SIDED IBRAHIM. "I JUST FEEL OUT OF SORTS". PT DENIES DIZZINESS/NAUSEA/CHANGES IN VISION OR SPEECH/CP/SOB PT HYPERTENSIVE WITH HX OF SAME, "THEY TOLD ME TO START TAKING 10MG OF MY LISINOPRIL, BUT IT MAKES ME FEEL AWFUL- SO I WENT BACK TO 5". BP UPON ARRIVAL 209/116; GROSS NEURO INTACT. BP/SPO2/ECG MONITORING IN PLACE. NSR ON MONITOR. EKG COMPLETED UPON ARRIVAL.
[2018-08-26] MEDS ORDERED: hydrALAzine 20 MG/ML, 1ML IV ONE (21:30)
[2018-08-26] MEDS ORDERED: hydrALAzine 20 MG/ML, 1ML ONE (21:36)
--- NOTE | 2018-08-26 21:49 | NUR ---
PT AMBULATED STEADILY TO RESTROOM WITHOUT WORSENING IBRAHIM/CP. PT MEDICATED PER EMAR FOR HTN
[2018-08-26 22:00] LABS: BASOPHILS # (AUTO) 0.02 x10^3/uL (0-0.1); BASOPHILS % (AUTO) 0 % (0-1); EOSINOPHILS # (AUTO) 0.12 x10^3/uL (0-0.4); EOSINOPHILS % (AUTO) 3 % (1-7); LYMPHOCYTES # (AUTO) 2.16 x10^3/uL (1-3.4); LYMPHOCYTES % (AUTO) 46 % (22-44); MD NO; MEAN CORPUSCULAR HEMOGLOBIN 30.4 pg (27.0-34.8); MEAN CORPUSCULAR HGB CONC 33.5 g/dL (32.4-35.8); MEAN CORPUSCULAR VOLUME 90.8 fL (80-100); MEAN PLATELET VOLUME 8.3 fL (7.4-10.4); MONOCYTES # (AUTO) 0.37 x10^3/uL (0.2-0.8); MONOCYTES % (AUTO) 8 % (2-9); NEUTROPHILS # (AUTO) 2.08 x10^3/uL (1.8-6.8); NEUTROPHILS % (AUTO) 44 % (42-75); PLATELET COUNT 191 x10^3/uL (130-400); RED BLOOD COUNT 5.23 x10^6/uL (3.82-5.3); RED CELL DISTRIBUTION WIDTH 13.4 % (9.6-15.2)
--- NOTE | 2018-08-26 22:07 | NUR ---
SLIGHT IMPROVEMENT IN BP NOTED. PT REPORTS IBRAHIM IMPROVING.
[2018-08-26 22:09] LABS: ALBUMIN 4.1 g/dL (3.4-5.0); ANION GAP 6 mmol/L (5-15); CALCIUM 8.5 mg/dL (8.5-10.1); CHLORIDE 106 mmol/L (98-107); CREATININE 0.77 mg/dL (0.55-1.02)
[2018-08-26 22:13] LABS: TROPONIN I < 0.015 ng/mL (0.000-0.045)
--- NOTE | 2018-08-26 22:34 | NUR ---
PT CONTINUES TO REPORT IMPROVEMENT IN IBRAHIM. DENIES WEAKNESS/DIZZINESS. ERP AT BEDSIDE TO DISCUSS POC (DC). PT DEMONSTRATES UNDERSTANDING. PT OFF MONITORING AND UP TO DRESS SELF.
--- NOTE | 2018-08-26 22:58 | NUR ---
PT WITH NAUSEA UPON DC. SBP 105. PT REMAINS PWD; DENIES CP. ERP AWARE. NO NEW ORDERS RECEIVED. WILL OBS PRIOR TO DC.
--- NOTE | 2018-08-26 23:26 | NUR ---
PT SITTING UP IN GURNEY, AWAKE/ALERT. PWD. WATCHING TV
[2018-08-27 00:29] VITALS: BP 118/60
--- NOTE | 2018-08-27 00:29 | NUR ---
IMPROVED BP. PT DENIES NAUSEA/DIZZINESS/WEAKNESS. PWD. PT TRANSFERED SELF TO WHEELCHAIR WO DIFFICULTY. PT WHEELED TO DC WITH RN. TAXI ORDERED/VOUCHER PROVIDED FOR SAFE TRANSPORT HOME.
[2018-08-29] MEDS ORDERED: HYDR25TA6 PO (01:07)
== END 2018-08-27 00:31 | disposition home or self-care (01) ==
LOC: ED 22:03
DX: I10 Essential (primary) hypertension (principal); R51 Headache; J45.909 Unspecified asthma, uncomplicated; Z90.49 Acquired absence of other specified parts of digestive tract; Z90.710 Acquired absence of both cervix and uterus
CPT/HCPCS: 36415; 80048; 82040; 84484; 85025; 93005; 96374; 99284; J0360

== ENCOUNTER 2018-09-06 00:40 | Emergency (ER) | payer MEDICARE ==
[~2018-09-06] VITALS: Ht 152.4 cm; Wt 58.0 kg
[~2018-09-06 00:40] MED LIST changes: +HYDR25TA6 PO
[2018-09-06] MEDS ORDERED: ACETAMINOPHEN 500 MG TABLET PO ONE (02:00)
[2018-09-06] MEDS ORDERED: ACETAMINOPHEN 500 MG TABLET ONE (02:19)
[2018-09-06 02:34] VITALS: BP 185/92
== END 2018-09-06 02:36 | disposition home or self-care (01) ==
LOC: ED 01:54
DX: I10 Essential (primary) hypertension (principal); Z90.89 Acquired absence of other organs; Z90.49 Acquired absence of other specified parts of digestive tract; Z90.710 Acquired absence of both cervix and uterus
CPT/HCPCS: 93005; 99283

== ENCOUNTER 2018-10-07 05:39 | Emergency (ER) | payer MEDICARE, OTHER ==
[~2018-10-07] VITALS: Ht 152.4 cm; Wt 54.0 kg
--- NOTE | 2018-10-07 05:57 | NUR ---
BRUCE. REPORT RECEIVED FROM EMS. PT C/O UNCONTROLLED HTN TODAY AND PRESSURE ON HEAD/DZY. PT TAKES LISINOPRIL FOR HTN. PT'S AOX4. RESPS EVEN AND UNLABORED. ALL MONITORS IN PLACE. CALL LIGHT WITHIN REACH. EDMD AT BEDSIDE TO EVALUATE AT THIS TIME.
[2018-10-07] MEDS ORDERED: LISINOPRIL 5 MG TABLET ONE (06:00)
[2018-10-07] MEDS ORDERED: LISINOPRIL 10 MG TABLET PO ONE (06:00)
--- NOTE | 2018-10-07 06:03 | NUR ---
PT MEDICATED PER EMAR. PT TOLERATED WELL.
[2018-10-07 06:56] VITALS: BP 197/105
--- NOTE | 2018-10-07 06:56 | NUR ---
RECIEVED REPORT FROM UVALDO RIVERO. ASSUMING PT CARE.
--- NOTE | 2018-10-07 06:56 | NUR ---
REPORT GIVEN TO HAILE BAILON.
--- NOTE | 2018-10-07 07:30 | NUR ---
PT RESTING COMFORTABLY ON GURNEY, WAITING FOR D/C. MD NOTIFIED OF CURRENT VITALS.
--- NOTE | 2018-10-07 07:33 | NUR ---
Patient given discharge instructions and they have confirmed that they understand the instructions. Patient ambulatory with steady gait.
[2018-10-18] MEDS ORDERED: LISI-167 PO (00:40)
[2018-10-19] MEDS ORDERED: CHOL200040 PO (13:41)
[2018-10-19] MEDS ORDERED: AMLO10TA8 PO (13:41)
[2018-12-07] MEDS ORDERED: LOSA25TA25 PO (13:56)
[2018-12-07] MEDS ORDERED: METO25TA91 PO (13:56)
== END 2018-10-07 07:34 | disposition home or self-care (01) ==
LOC: ED 06:13
DX: I10 Essential (primary) hypertension (principal)
CPT/HCPCS: 93005; 99283

== ENCOUNTER 2018-10-13 21:03 | Emergency (ER) | payer MEDICARE, OTHER ==
[~2018-10-13] VITALS: Ht 152.4 cm; Wt 58.2 kg
[2018-10-13 22:48] VITALS: BP 165/75
== END 2018-10-13 23:55 | disposition home or self-care (01) ==
LOC: ED 22:09
DX: I10 Essential (primary) hypertension (principal); F41.1 Generalized anxiety disorder; J45.909 Unspecified asthma, uncomplicated; E07.9 Disorder of thyroid, unspecified; Z90.49 Acquired absence of other specified parts of digestive tract; Z90.710 Acquired absence of both cervix and uterus
CPT/HCPCS: 36415; 80048; 82040; 84484; 85025; 93005; 96374; 96375; 99284; J0360

== ENCOUNTER 2018-10-18 00:26 | Emergency (ER) | payer MEDICARE, OTHER ==
[~2018-10-18] VITALS: Ht 152.4 cm; Wt 56.0 kg
[2018-10-18 01:47] VITALS: BP 155/83
== END 2018-10-18 02:00 | disposition home or self-care (01) ==
LOC: ED 01:23
DX: I10 Essential (primary) hypertension (principal); R42 Dizziness and giddiness; Z72.9 Problem related to lifestyle, unspecified; Z90.49 Acquired absence of other specified parts of digestive tract; Z90.710 Acquired absence of both cervix and uterus; Z90.89 Acquired absence of other organs
CPT/HCPCS: 36415; 80048; 82040; 85025; 99283

== ENCOUNTER 2018-10-19 11:51 | Emergency (ER) | payer MEDICARE, OTHER ==
[~2018-10-19] VITALS: Ht 152.4 cm; Wt 58.0 kg
[2018-10-19 14:57] VITALS: BP 182/103
== END 2018-10-19 15:27 | disposition home or self-care (01) ==
LOC: ED 15:05
DX: I10 Essential (primary) hypertension (principal); J45.909 Unspecified asthma, uncomplicated; Z90.49 Acquired absence of other specified parts of digestive tract; Z90.710 Acquired absence of both cervix and uterus
CPT/HCPCS: 36415; 71045; 80048; 82040; 83880; 84484; 85025; 93005; 99284

== ENCOUNTER 2018-11-03 18:16 | Emergency (ER) | payer MEDICARE, OTHER ==
[~2018-11-03] VITALS: Ht 152.4 cm; Wt 55.0 kg
[~2018-11-03 18:16] MED LIST changes: +AMLO10TA8 PO; +CHOL200040 PO; +LISI-167 PO
--- NOTE | 2018-11-03 19:15 | NUR ---
PT AMBULATED TO BR WITH SBA. URINE COLLECTED/SENT TO LAB. CALL LIGHT WITHIN REACH, WARM BLANKET PROVIDED.
[2018-11-03 19:25] LABS: MICROSCOPIC AUTO
[2018-11-03 19:26] LABS: CULTURE INDICATED? YES
[2018-11-03 19:29] LABS: BASOPHILS # (AUTO) 0.02 x10^3/uL (0-0.1); BASOPHILS % (AUTO) 0 % (0-1); EOSINOPHILS % (AUTO) 2 % (1-7); LYMPHOCYTES # (AUTO) 2.03 x10^3/uL (1-3.4); LYMPHOCYTES % (AUTO) 44 % (22-44); MD NO; MEAN CORPUSCULAR HEMOGLOBIN 30.6 pg (27.0-34.8); MEAN CORPUSCULAR HGB CONC 33.6 g/dL (32.4-35.8); MEAN PLATELET VOLUME 8.3 fL (7.4-10.4); MONOCYTES # (AUTO) 0.29 x10^3/uL (0.2-0.8); MONOCYTES % (AUTO) 6 % (2-9); NEUTROPHILS # (AUTO) 2.17 x10^3/uL (1.8-6.8); NEUTROPHILS % (AUTO) 47 % (42-75); PLATELET COUNT 178 x10^3/uL (130-400); RED BLOOD COUNT 5.13 x10^6/uL (3.82-5.3); RED CELL DISTRIBUTION WIDTH 13.9 % (9.6-15.2)
[2018-11-03] MEDS ORDERED: ACETAMINOPHEN 500 MG TABLET PO ONE (19:30)
[2018-11-03] MEDS ORDERED: ACETAMINOPHEN 500 MG TABLET ONE (19:34)
[2018-11-03 19:36] VITALS: BP 140/83
--- NOTE | 2018-11-03 19:37 | NUR ---
PT MEDICATED PER EMAR FOR 10/10 L SIDED IBRAHIM/NECK PAIN.
[2018-11-03 19:39] LABS: ANION GAP 9 mmol/L (5-15); CALCIUM 8.3 mg/dL (8.5-10.1); CHLORIDE 107 mmol/L (98-107); CREATININE 0.71 mg/dL (0.55-1.02)
--- NOTE | 2018-11-03 20:36 | NUR ---
PT STATES IBRAHIM RELIEVED, SLIGHT NECK STRAIN ONLY FOLLOWING TYLENOL. PT DISCHARGED HOME, TAXI VOUCHER PROVIDED PER REQUEST.
[2018-12-07] MEDS ORDERED: METO25TA91 PO (13:56)
[2018-12-07] MEDS ORDERED: LOSA25TA25 PO (13:56)
== END 2018-11-03 20:40 | disposition home or self-care (01) ==
LOC: ED 20:00
DX: R53.81 Other malaise (principal); I10 Essential (primary) hypertension; Z90.49 Acquired absence of other specified parts of digestive tract; Z90.710 Acquired absence of both cervix and uterus
CPT/HCPCS: 36415; 80048; 81001; 85025; 87086; 99283

== ENCOUNTER 2018-12-27 22:13 | Emergency (ER) | payer MEDICARE ==
[~2018-12-27] VITALS: Ht 165.1 cm; Wt 57.5 kg
[~2018-12-27 22:13] MED LIST changes: +LOSA25TA25 PO; +METO25TA91 PO
[2018-12-27] MEDS ORDERED: ONDANSETRON ODT 4 MG PO ONE (22:30)
[2018-12-27] MEDS ORDERED: ONDANSETRON ODT 4 MG ONE (22:34)
[2018-12-27 23:13] VITALS: BP 177/81
--- NOTE | 2018-12-27 23:31 | NUR ---
PT STATES SHE STARTED FEELING "AN ACHE" IN HER LEFT CHEST UNDER HER BREAST, "STOMACH UPSET" AND DIZZINESS. PT STATES HER STOMACH IS ALWAYS UPSET. PT STATES THESE ARE THE SYMPTOMS SHE GETS WHEN HER BP IS HIGH. PT STATES SHE IS BEING TREATED WITH ABX CURRENTLY FOR SINUS INFECTION BY ENT
== END 2018-12-28 00:02 | disposition home or self-care (01) ==
LOC: ED 23:11
DX: R11.0 Nausea (principal); I10 Essential (primary) hypertension; J45.909 Unspecified asthma, uncomplicated; F41.1 Generalized anxiety disorder; Z90.49 Acquired absence of other specified parts of digestive tract; Z90.710 Acquired absence of both cervix and uterus; Z90.89 Acquired absence of other organs
CPT/HCPCS: 93005; 99283; Q0162

== ENCOUNTER 2019-01-01 02:03 | Emergency (ER) | payer MEDICARE ==
[~2019-01-01] VITALS: Ht 152.4 cm; Wt 54.0 kg
[2019-01-01 02:05] VITALS: BP 170/110
[2019-01-01] MEDS ORDERED: ACETAMINOPHEN 500 MG TABLET ONE (03:05)
[2019-01-01] MEDS ORDERED: ACETAMINOPHEN 500 MG TABLET PO ONE (03:30)
== END 2019-01-01 03:23 | disposition home or self-care (01) ==
LOC: ED 02:37
DX: I10 Essential (primary) hypertension (principal); J45.909 Unspecified asthma, uncomplicated; Z90.49 Acquired absence of other specified parts of digestive tract; Z90.710 Acquired absence of both cervix and uterus
CPT/HCPCS: 93005; 99283

== ENCOUNTER 2019-01-07 23:23 | Emergency (ER) | payer MEDICARE ==
[~2019-01-07] VITALS: Ht 152.4 cm; Wt 55.0 kg
[~2019-01-07 23:23] MED LIST changes: +ACET500T64 PO; -ACET500T71 PO
[2019-01-08 00:03] VITALS: BP 138/77
== END 2019-01-08 01:11 | disposition home or self-care (01) ==
LOC: ED 23:51
DX: I10 Essential (primary) hypertension (principal); J45.909 Unspecified asthma, uncomplicated; Z90.49 Acquired absence of other specified parts of digestive tract; Z90.710 Acquired absence of both cervix and uterus; Z72.9 Problem related to lifestyle, unspecified
CPT/HCPCS: 93005; 99283

== ENCOUNTER 2019-02-10 21:37 | Emergency (ER) | payer MEDICARE, OTHER ==
[~2019-02-10] VITALS: Ht 152.4 cm; Wt 54.0 kg
[2019-02-10 21:42] VITALS: BP 171/91
[2019-02-10] MEDS ORDERED: ACETAMINOPHEN 325 MG TABLET ONE (21:54)
[2019-02-10] MEDS ORDERED: ACETAMINOPHEN 325 MG TABLET PO ONE (22:00)
[2019-02-10 22:02] LABS: BASOPHILS # (AUTO) 0.03 x10^3/uL (0-0.1); BASOPHILS % (AUTO) 1 % (0-1); EOSINOPHILS # (AUTO) 0.21 x10^3/uL (0-0.4); EOSINOPHILS % (AUTO) 5 % (1-7); LYMPHOCYTES # (AUTO) 1.72 x10^3/uL (1-3.4); LYMPHOCYTES % (AUTO) 38 % (22-44); MD NO; MEAN CORPUSCULAR HEMOGLOBIN 30.1 pg (27.0-34.8); MEAN CORPUSCULAR HGB CONC 32.8 g/dL (32.4-35.8); MEAN PLATELET VOLUME 7.9 fL (7.4-10.4); MONOCYTES # (AUTO) 0.41 x10^3/uL (0.2-0.8); MONOCYTES % (AUTO) 9 % (2-9); NEUTROPHILS # (AUTO) 2.12 x10^3/uL (1.8-6.8); NEUTROPHILS % (AUTO) 47 % (42-75); PLATELET COUNT 202 x10^3/uL (130-400); RED BLOOD COUNT 4.73 x10^6/uL (3.82-5.3); RED CELL DISTRIBUTION WIDTH 13.8 % (9.6-15.2)
[2019-02-10 22:11] LABS: ALANINE AMINOTRANSFERASE 21 U/L (12-78); ALBUMIN 3.6 g/dL (3.4-5.0); ANION GAP 6 mmol/L (5-15); CALCIUM 8.6 mg/dL (8.5-10.1); CHLORIDE 107 mmol/L (98-107)
[2019-02-10 22:16] LABS: ALKALINE PHOSPHATASE 53 U/L (45-117); BILIRUBIN,TOTAL 0.6 mg/dL (0.2-1.0); CREATININE 0.73 mg/dL (0.55-1.02); TOTAL PROTEIN 6.9 g/dL (6.4-8.2)
== END 2019-02-10 23:23 | disposition home or self-care (01) ==
LOC: ED 22:41
DX: I10 Essential (primary) hypertension (principal); R51 Headache; M79.89 Other specified soft tissue disorders; J45.909 Unspecified asthma, uncomplicated; Z90.89 Acquired absence of other organs; Z90.49 Acquired absence of other specified parts of digestive tract; Z90.710 Acquired absence of both cervix and uterus; Z86.39 Personal history of other endocrine, nutritional and metabolic disease
CPT/HCPCS: 36415; 80053; 83880; 85025; 99283

== ENCOUNTER 2019-03-01 23:48 | Emergency (ER) | payer MEDICARE, OTHER ==
[~2019-03-01] VITALS: Ht 157.5 cm; Wt 55.0 kg
[2019-03-01 23:52] VITALS: BP 174/101
--- NOTE | 2019-03-02 00:43 | NUR ---
TASK RN: DC EDUCATION PROVIDED, PT DEMONSTRATES UNDERSTANDING. PT AMBULATED STEADILY TO DC WITH RN. TAXI VOUCHER PROVIDED FOR SAFE TRANSPORT HOME.
[2019-03-03] MEDS ORDERED: LISI-170 PO (23:02)
== END 2019-03-02 00:45 | disposition home or self-care (01) ==
LOC: ED 23:52
DX: I10 Essential (primary) hypertension (principal); F41.1 Generalized anxiety disorder; J45.909 Unspecified asthma, uncomplicated; Z90.89 Acquired absence of other organs; Z90.49 Acquired absence of other specified parts of digestive tract; Z90.710 Acquired absence of both cervix and uterus
CPT/HCPCS: 99283

== ENCOUNTER 2019-03-03 22:41 | Emergency (ER) | payer MEDICARE, OTHER ==
[~2019-03-03] VITALS: Ht 152.4 cm; Wt 58.3 kg
[2019-03-03 22:48] VITALS: BP 181/113
[2019-03-03] MEDS ORDERED: LISI-170 PO (23:02)
--- NOTE | 2019-03-03 23:04 | NUR ---
THIS IS AN 83 YO FEMALE BIB [facility] FOR HTN AT HOME. PER PATIENT DIARY, SBP WAS UP TO 190 EARLIER TODAY. PATIENT STATES ONLY SYMPTOM/COMPLAINT AT THIS TIME IS DIZZINESS. VITAL SIGNS EN ROUTE WERE 179/77, HR 84, SPO2 96% ON RA. PATIENT WAS SEEN HERE TWO DAYS AGO FOR SAME SYMPTOMS, WAS TOLD BY DISTRICT COURT JUSTICE TO COME BACK IF SYMPTOMS DON'T GET BETTER. PATIENT PLACED ON CONTINUOUS SPO2 AT 98%, CYCLE BP Q11HR. BP IN ROOM 181/113. CALL LIGHT IN REACH, TECH TO ROOM TO DO EKG.
[2019-03-03] MEDS ORDERED: ONDANSETRON ODT 4 MG PO ONE (23:30)
[2019-03-03] MEDS ORDERED: LORazepam 0.5MG TABLET PO ONE (23:30)
[2019-03-03] MEDS ORDERED: ONDANSETRON 4 MG TABLET PO ONE (23:30)
[2019-03-03] MEDS ORDERED: ONDANSETRON ODT 4 MG ONE (23:35)
[2019-03-03] MEDS ORDERED: LORazepam 0.5MG TABLET ONE (23:36)
--- NOTE | 2019-03-03 23:40 | NUR ---
PATIENT MEDICATED PER EMAR, TOLERATED WELL. DENIES NEEDS AT THIS TIME
--- NOTE | 2019-03-04 00:33 | NUR ---
PT REPORTS IMPROVEMENT IN S/S WITH MEDICATIONS. DC EDUCATION PROVIDED, PT DEMONSTRATES UNDERSTANDING. PT AMBUALTED STEADILY TO DC WITH RN. TAXI VOUCHER PROVIDED FOR SAFE TRANSPORT HOME.
== END 2019-03-04 00:34 | disposition home or self-care (01) ==
LOC: ED 22:54
DX: I10 Essential (primary) hypertension (principal); F41.1 Generalized anxiety disorder; R11.0 Nausea; J45.909 Unspecified asthma, uncomplicated; Z90.89 Acquired absence of other organs; Z90.49 Acquired absence of other specified parts of digestive tract; Z90.710 Acquired absence of both cervix and uterus
CPT/HCPCS: 93005; 99283; Q0162

== ENCOUNTER 2019-03-09 15:18 | Emergency (ER) | payer MEDICARE, OTHER ==
[~2019-03-09] VITALS: Ht 149.9 cm; Wt 55.0 kg
--- NOTE | 2019-03-09 15:31 | NUR ---
BIB [facility] FROM HOME. PT C/O NAUSEA AND HTN STARTING THIS AM. HX HTN, ANXIETY. PT C/O ONGOING CONFRONTATION WITH A NEIGHBOR THAT CAUSES HER ANXIETY TO INCREASE. PT STATES FEELS MORE RELAXED UPON ARRIVAL. CONNECTED TO MONITORING. CALL LIGHT IN REACH. AWAITING ORDERS AT THIS TIME.
--- NOTE | 2019-03-09 16:02 | NUR ---
MEDS ADMIN PER MAY. PT RESTING COMFORTABLY ON [place]. YVETTE.
[2019-03-09 16:03] VITALS: BP 173/78
== END 2019-03-09 16:32 | disposition home or self-care (01) ==
LOC: ED 16:30
DX: F41.1 Generalized anxiety disorder (principal); I10 Essential (primary) hypertension; J45.909 Unspecified asthma, uncomplicated; Z90.49 Acquired absence of other specified parts of digestive tract; Z90.710 Acquired absence of both cervix and uterus
CPT/HCPCS: 93005; 99283; Q0177

== ENCOUNTER 2019-07-16 08:32 | Observation (INO) | payer MEDICARE, OTHER ==
[~2019-07-16] VITALS: Ht 160 cm; Wt 62.7 kg
--- NOTE | 2019-07-16 08:39 | NUR ---
PT BIB EMS FOR VERTIGO N/V. PT STATES WHEN SHE MOVES HER HEARD SHE IS SPINNING. HAD EPISODE LIKE THIS LAST YEAR. PT DENIES FALL, CP, SOB. NO COUGH. PT A&0 X4, NO INJURIES OR TRAUMA. MD AT BEDSIDE FOR EXAM. PER EMS NSR IN ROUTE , 4 MG ZOFRAN GIVE
[2019-07-16] MEDS ORDERED: MECLIZINE CHEWABLE 25 MG TAB ONE (08:43)
[2019-07-16] MEDS ORDERED: SODIUM CHLORIDE 0.9%, 500ML IVBOLUS ONE (09:00)
[2019-07-16] MEDS ORDERED: MECLIZINE CHEWABLE 25 MG TAB PO ONE (09:00)
[2019-07-16] MEDS ORDERED: PLEASE ENTER HEIGHT AND WEIGHT MC SCH (09:00)
--- NOTE | 2019-07-16 09:21 | NUR ---
MEDICATED PER ORDERS. PT VOIDED ON BED ALLEN.
--- NOTE | 2019-07-16 09:40 | NUR ---
PT STATES SHE FEELS LESS DIZZY. VSS. GIVEN WARM BLANKET
--- NOTE | 2019-07-16 10:36 | NUR ---
PT ATTEMPTED TO STAND W RN. PT UNSTABLE ON FEET AND CO DIZZINESS WHEN MOVING. PUREWHICK APPLIED, PT STATES HER "BLADDER DROPPED" AND URINATES FREQUENTLY. AWARE.
[2019-07-16 11:08] LABS: BASOPHILS # (AUTO) 0.04 x10^3/uL (0-0.1); BASOPHILS % (AUTO) 1 % (0-1); EOSINOPHILS # (AUTO) 0.01 x10^3/uL (0-0.4); EOSINOPHILS % (AUTO) 0 % (1-7); LYMPHOCYTES # (AUTO) 1.37 x10^3/uL (1-3.4); LYMPHOCYTES % (AUTO) 19 % (22-44); MD NO; MEAN CORPUSCULAR HEMOGLOBIN 30.3 pg (27.0-34.8); MEAN CORPUSCULAR HGB CONC 33.3 g/dL (32.4-35.8); MEAN CORPUSCULAR VOLUME 90.9 fL (80-100); MEAN PLATELET VOLUME 8.2 fL (7.4-10.4); MONOCYTES # (AUTO) 0.36 x10^3/uL (0.2-0.8); MONOCYTES % (AUTO) 5 % (2-9); NEUTROPHILS # (AUTO) 5.48 x10^3/uL (1.8-6.8); NEUTROPHILS % (AUTO) 76 % (42-75); PLATELET COUNT 169 x10^3/uL (130-400); RED BLOOD COUNT 4.97 x10^6/uL (3.82-5.3); RED CELL DISTRIBUTION WIDTH 13.6 % (9.6-15.2)
[2019-07-16 11:13] LABS: ALBUMIN 3.9 g/dL (3.4-5.0); ANION GAP 5 mmol/L (5-15); CALCIUM 8.5 mg/dL (8.5-10.1); CHLORIDE 106 mmol/L (98-107)
--- NOTE | 2019-07-16 11:45 | NUR ---
PT STATES SHE DOES NOT FEEL WELL AND STILL DIZZY. VSS.
--- NOTE | 2019-07-16 12:19 | NUR ---
PLAN FOR ADMIT. PT RESTING. VSS
[2019-07-16] MEDS ORDERED: LISI-167 PO (12:24)
[2019-07-16] MEDS ORDERED: ERGO500017 PO (12:24)
[2019-07-16] MEDS ORDERED: ATOR10TA9 PO (12:24)
[2019-07-16] MEDS ORDERED: HYDR12.517 PO (12:24)
[2019-07-16] MEDS ORDERED: AMLO10TA8 PO (12:24)
[2019-07-16] MEDS ORDERED: LABETALOL 5MG/ML, 20ML IVPush PRN (13:30)
[2019-07-16] MEDS ORDERED: ERGOCALCIFEROL 50,000 UNIT CAPSULE PO SCH (13:30)
[2019-07-16] MEDS ORDERED: ONDANSETRON ODT 4 MG PO PRN (13:30)
[2019-07-16] MEDS ORDERED: POTASSIUM CHLORIDE 20 MEQ TAB.ER.PRT PO ONE (14:00)
--- NOTE | 2019-07-16 14:00 | NUR ---
REG MEAL TRAY PROVIDED TO PT. AWAITING FOR MED BED. VSS. NO FURTHER NEEDS..
--- NOTE | 2019-07-16 14:24 | NUR ---
REPORT TO JULIUS
[2019-07-16] MEDS ORDERED: MECLIZINE 25 MG TABLET PO PRN (14:30)
[2019-07-16 15:03] VITALS: BP 125/72
[2019-07-16 19:51] VITALS: BP 109/68
[2019-07-16] MEDS: ATORVASTATIN 10 MG TABLET PO SCH (20:36)
[2019-07-17 01:21] VITALS: BP 101/62
[2019-07-17] MEDS: ACETAMINOPHEN 325 MG TABLET PO PRN ×2 (03:19→22:06)
[2019-07-17 05:52] LABS: ANION GAP 6 mmol/L (5-15); CALCIUM 8.3 mg/dL (8.5-10.1); CHLORIDE 107 mmol/L (98-107)
[2019-07-17 05:53] LABS: CREATININE 0.86 mg/dL (0.55-1.02)
[2019-07-17 08:19] VITALS: BP 99/65
[2019-07-17] MEDS: LISINOPRIL 10 MG TABLET PO SCH (08:27)
[2019-07-17] MEDS ORDERED: HYDROCHLOROTHIAZIDE 12.5 MG CAPSULE PO SCH (09:00)
[2019-07-17] MEDS ORDERED: AMLODIPINE 5 MG TABLET PO SCH (09:00)
[2019-07-17 11:13] LABS: MICROSCOPIC AUTO
[2019-07-17 11:30] LABS: CULTURE INDICATED? NO
[2019-07-17] MEDS ORDERED: SENNA/DOCUSATE TABLET PO PRN (13:00)
[2019-07-17 15:08] VITALS: BP 153/85
[2019-07-17 20:00] VITALS: BP 109/64
[2019-07-17] MEDS: ATORVASTATIN 10 MG TABLET PO SCH (22:06)
[2019-07-17] MEDS ORDERED: OMNIPAQUE 350 MG/ML, 75ML BOTTLE ONE (22:43)
[2019-07-18 01:35] VITALS: BP 112/72
[2019-07-18 06:51] VITALS: BP 113/73
[2019-07-18] MEDS: LISINOPRIL 10 MG TABLET PO SCH (08:12)
[2019-07-18 08:13] VITALS: BP 128/78
[2019-07-18] MEDS ORDERED: [UNRECOGNIZED DRUG - CODE] PO (10:28)
[2019-07-18] MEDS ORDERED: MECL-101 PO (10:28)
[2019-07-18] MEDS ORDERED: BISACODYL 10 MG SUPP PR ONE (13:00)
[2019-07-18 13:15] VITALS: BP 135/85
== END 2019-07-18 15:00 ==
LOC: ED 08:59 → INTOOBSV 12:45 → EDIP 12:45 → 3N 14:35
PROVIDERS: ADMIT Family Medicine; ATTEND Family Medicine
DX: R42 Dizziness and giddiness (principal); M81.0 Age-related osteoporosis without current pathological fracture; I10 Essential (primary) hypertension; F41.1 Generalized anxiety disorder; J38.1 Polyp of vocal cord and larynx; Z79.899 Other long term (current) drug therapy
CPT/HCPCS: 36415; 70498; 80048; 81001; 82040; 83735; 85025; 93005; 96360; 96361; 97116; 97163; 97166; 97530; 99285; G0378; J7040; Q9967

== ENCOUNTER 2019-08-03 16:48 | Observation (INO) | payer MEDICARE, OTHER ==
[~2019-08-03] VITALS: Ht 152.4 cm; Wt 58.7 kg
[~2019-08-03 16:48] MED LIST changes: +ATOR10TA9 PO; +HYDR12.517 PO; +MECL-101 PO; +[UNRECOGNIZED DRUG - CODE] PO
--- NOTE | 2019-08-03 17:20 | NUR ---
BIB [facility]. PT WAS WALKING INTO HER APARTMENT COMPLEX WHEN SHE HAD A SUDDEN ONSET OF DIZZINESS AND HAD A SYNCOPAL EPISODE THAT RESULTED IN HER FALLING AND HITTING HER FOREHEAD ON THE WALL. PT SUSTAINED A LACERATION IN THE MIDDLE OF HER FOREHEAD. [facility] IRRIGATED AND DRESSED THE LACERATION. BLEEDING CONTROLLED. PT AOX4 HX OF VERTIGO. PT DOES NOT REMEMBER EVENT. PLACED PT ON SHIP'S COOK. VS STABLE. WILL CONTINUE TO MONITOR PT.
[2019-08-03] MEDS ORDERED: LIDOCAINE 1%, 10ML INFIL ONE (17:30)
[2019-08-03] MEDS ORDERED: SODIUM CHLORIDE FLUSH 10ML SYR IVF ONE (17:30)
[2019-08-03] MEDS ORDERED: LIDOCAINE-MPF 1%, 5ML ONE (17:37)
[2019-08-03 18:27] LABS: BASOPHILS # (AUTO) 0.02 x10^3/uL (0-0.1); BASOPHILS % (AUTO) 0 % (0-1); EOSINOPHILS # (AUTO) 0.06 x10^3/uL (0-0.4); EOSINOPHILS % (AUTO) 1 % (1-7); LYMPHOCYTES # (AUTO) 1.62 x10^3/uL (1-3.4); LYMPHOCYTES % (AUTO) 27 % (22-44); MD NO; MEAN CORPUSCULAR HEMOGLOBIN 30.4 pg (27.0-34.8); MEAN CORPUSCULAR HGB CONC 33.4 g/dL (32.4-35.8); MEAN CORPUSCULAR VOLUME 90.8 fL (80-100); MEAN PLATELET VOLUME 9.2 fL (7.4-10.4); MONOCYTES # (AUTO) 0.43 x10^3/uL (0.2-0.8); MONOCYTES % (AUTO) 7 % (2-9); NEUTROPHILS # (AUTO) 3.91 x10^3/uL (1.8-6.8); NEUTROPHILS % (AUTO) 65 % (42-75); PLATELET COUNT 179 x10^3/uL (130-400); RED CELL DISTRIBUTION WIDTH 13.9 % (9.6-15.2)
[2019-08-03 18:37] LABS: ALBUMIN 3.9 g/dL (3.4-5.0); ANION GAP 9 mmol/L (5-15); CALCIUM 8.9 mg/dL (8.5-10.1); CHLORIDE 107 mmol/L (98-107)
[2019-08-03 18:41] LABS: ALANINE AMINOTRANSFERASE 25 U/L (12-78); ALKALINE PHOSPHATASE 49 U/L (45-117); BILIRUBIN,TOTAL 0.9 mg/dL (0.2-1.0); CREATININE 1.02 mg/dL (0.55-1.02); TOTAL PROTEIN 7.1 g/dL (6.4-8.2)
[2019-08-03 21:37] VITALS: BP 154/75
[2019-08-03] MEDS ORDERED: ACETAMINOPHEN 325 MG TABLET PO PRN (22:00)
[2019-08-03] MEDS ORDERED: MECLIZINE 25 MG TABLET PO PRN (22:00)
[2019-08-03] MEDS ORDERED: POTASSIUM CHLORIDE 20 MEQ TAB.ER.PRT PO ONE (22:00)
[2019-08-03] MEDS ORDERED: BISACODYL 10 MG SUPP PR PRN (22:00)
[2019-08-03] MEDS ORDERED: ONDANSETRON 2MG/ML, 2ML IVPush PRN (22:00)
[2019-08-03] MEDS ORDERED: DOCUSATE 100 MG CAPSULE PO PRN (22:00)
[2019-08-03] MEDS ORDERED: ENOXAPARIN 30 MG/0.3 ML SQ SCH (22:00)
[2019-08-03] MEDS ORDERED: POLYETHYLENE GLYCOL 17 GM PACKET PO PRN (22:00)
[2019-08-03] MEDS ORDERED: hydrALAzine 20 MG/ML, 1ML IVPush PRN (22:00)
[2019-08-03] MEDS ORDERED: ENALAPRILAT 1.25 MG/ML, 2ML IVPush PRN (22:00)
[2019-08-03] MEDS ORDERED: ONDANSETRON ODT 4 MG PO PRN (22:00)
[2019-08-03] MEDS: D5%-0.45NACL+KCL 20MEQ 1,000 ML IV SCH (22:57)
[2019-08-03 23:26] VITALS: BP 154/95
[2019-08-04 00:24] VITALS: BP 111/68
[2019-08-04 06:46] LABS: BASOPHILS # (AUTO) 0.01 x10^3/uL (0-0.1); BASOPHILS % (AUTO) 0 % (0-1); EOSINOPHILS # (AUTO) 0.12 x10^3/uL (0-0.4); EOSINOPHILS % (AUTO) 3 % (1-7); LYMPHOCYTES # (AUTO) 1.15 x10^3/uL (1-3.4); LYMPHOCYTES % (AUTO) 28 % (22-44); MD NO; MEAN CORPUSCULAR HEMOGLOBIN 30.5 pg (27.0-34.8); MEAN CORPUSCULAR HGB CONC 33.6 g/dL (32.4-35.8); MEAN CORPUSCULAR VOLUME 90.8 fL (80-100); MEAN PLATELET VOLUME 9.2 fL (7.4-10.4); MONOCYTES # (AUTO) 0.34 x10^3/uL (0.2-0.8); MONOCYTES % (AUTO) 8 % (2-9); NEUTROPHILS # (AUTO) 2.56 x10^3/uL (1.8-6.8); NEUTROPHILS % (AUTO) 61 % (42-75); PLATELET COUNT 152 x10^3/uL (130-400); RED BLOOD COUNT 4.29 x10^6/uL (3.82-5.3); RED CELL DISTRIBUTION WIDTH 13.5 % (9.6-15.2)
[2019-08-04 06:55] LABS: ANION GAP 9 mmol/L (5-15); CALCIUM 8.3 mg/dL (8.5-10.1); CHLORIDE 107 mmol/L (98-107)
[2019-08-04 07:06] LABS: CREATININE 0.66 mg/dL (0.55-1.02)
[2019-08-04 08:02] VITALS: BP 108/64
[2019-08-04] MEDS: CALCIUM/VITAMIN D3 250-125 TABLET PO SCH (08:39)
[2019-08-04] MEDS: D5%-0.45NACL+KCL 20MEQ 1,000 ML IV SCH ×2 (08:39→21:55)
[2019-08-04] MEDS: LISINOPRIL 10 MG TABLET PO SCH (08:39)
[2019-08-04 13:52] VITALS: BP 98/64
[2019-08-04] MEDS ORDERED: GADOTERATE 7.5 MMOL/15 ML SYR ONE (15:27)
[2019-08-04 18:44] VITALS: BP 107/70
[2019-08-04] MEDS ORDERED: ATORVASTATIN 10 MG TABLET PO SCH (21:00)
[2019-08-04 21:20] LABS: MICROSCOPIC AUTO
[2019-08-05 00:36] VITALS: BP 116/74
[2019-08-05] MEDS: LISINOPRIL 10 MG TABLET PO SCH (07:53)
[2019-08-05] MEDS: CALCIUM/VITAMIN D3 250-125 TABLET PO SCH (07:53)
[2019-08-05 09:24] VITALS: BP 102/70
== END 2019-08-05 15:27 | disposition home or self-care (01) ==
LOC: ED 19:30 → EDIP 20:13 → INTOOBSV 20:13 → 4WST 21:18 → DCLOUNGE 08-05 15:24
PROVIDERS: ADMIT Family Medicine; ATTEND Family Medicine
DX: R55 Syncope and collapse (principal); E87.6 Hypokalemia; I10 Essential (primary) hypertension; S01.81XA Laceration without foreign body of other part of head, initial encounter; E78.5 Hyperlipidemia, unspecified; J38.1 Polyp of vocal cord and larynx; D41.4 Neoplasm of uncertain behavior of bladder; M81.0 Age-related osteoporosis without current pathological fracture; J45.909 Unspecified asthma, uncomplicated; Z79.899 Other long term (current) drug therapy; W18.30XA Fall on same level, unspecified, initial encounter; Y93.89 Activity, other specified; Y92.89 Other specified places as the place of occurrence of the external cause
CPT/HCPCS: 36415; 70450; 70553; 71045; 80048; 80053; 81001; 83735; 84100; 84443; 85025; 87086; 93005; 96365; 96366; 97162; 97165; 99285; A9575; G0378; J1650; J3480; 96360; 96361

== ENCOUNTER 2019-08-12 08:15 | Observation (INO) | payer MEDICARE, OTHER ==
[~2019-08-12] VITALS: Ht 152.4 cm; Wt 57.0 kg
[2019-08-12] MEDS ORDERED: MECLIZINE CHEWABLE 25 MG TAB PO ONE (09:30)
--- NOTE | 2019-08-12 09:30 | NUR ---
pt resting in bed, call light in reach.
[2019-08-12] MEDS ORDERED: MECLIZINE CHEWABLE 25 MG TAB ONE (09:39)
--- NOTE | 2019-08-12 09:41 | NUR ---
ASSTSTED AMBULATION TO BATHROOM
[2019-08-12 10:02] LABS: MICROSCOPIC AUTO
[2019-08-12 10:12] LABS: BASOPHILS # (AUTO) 0.02 x10^3/uL (0-0.1); BASOPHILS % (AUTO) 1 % (0-1); EOSINOPHILS # (AUTO) 0.23 x10^3/uL (0-0.4); EOSINOPHILS % (AUTO) 5 % (1-7); LYMPHOCYTES # (AUTO) 1.84 x10^3/uL (1-3.4); LYMPHOCYTES % (AUTO) 44 % (22-44); MD NO; MEAN CORPUSCULAR HEMOGLOBIN 30.7 pg (27.0-34.8); MEAN CORPUSCULAR HGB CONC 33.5 g/dL (32.4-35.8); MEAN CORPUSCULAR VOLUME 91.5 fL (80-100); MEAN PLATELET VOLUME 7.8 fL (7.4-10.4); MONOCYTES # (AUTO) 0.34 x10^3/uL (0.2-0.8); MONOCYTES % (AUTO) 8 % (2-9); NEUTROPHILS # (AUTO) 1.78 x10^3/uL (1.8-6.8); NEUTROPHILS % (AUTO) 42 % (42-75); PLATELET COUNT 185 x10^3/uL (130-400); RED BLOOD COUNT 4.81 x10^6/uL (3.82-5.3); RED CELL DISTRIBUTION WIDTH 13.8 % (9.6-15.2)
[2019-08-12 10:25] LABS: ALBUMIN 3.7 g/dL (3.4-5.0); ANION GAP 8 mmol/L (5-15); CALCIUM 8.8 mg/dL (8.5-10.1); CHLORIDE 108 mmol/L (98-107)
[2019-08-12 10:29] LABS: ALANINE AMINOTRANSFERASE 26 U/L (12-78); ALKALINE PHOSPHATASE 51 U/L (45-117); BILIRUBIN,TOTAL 1.1 mg/dL (0.2-1.0); CREATININE 0.77 mg/dL (0.55-1.02); TOTAL PROTEIN 7.2 g/dL (6.4-8.2)
--- NOTE | 2019-08-12 10:45 | NUR ---
Assisted ambulation to bathroom, pt back resting in bed.
--- NOTE | 2019-08-12 11:58 | NUR ---
KEHINDE YOUNG AT BEDSIDE FOR EVAL
--- NOTE | 2019-08-12 12:47 | NUR ---
PT TO MRI
--- NOTE | 2019-08-12 13:17 | NUR ---
Report to Sri BAILON.
[2019-08-12] MEDS ORDERED: ENOXAPARIN 40 MG/0.4 ML SQ SCH (14:30)
[2019-08-12] MEDS ORDERED: MECLIZINE 25 MG TABLET PO PRN (14:30)
[2019-08-12] MEDS ORDERED: DOCUSATE 100 MG CAPSULE PO PRN (14:30)
[2019-08-12] MEDS ORDERED: LABETALOL 5MG/ML, 20ML IVPush PRN (14:30)
[2019-08-12] MEDS ORDERED: BISACODYL 10 MG SUPP PR PRN (14:30)
[2019-08-12 14:59] VITALS: BP 160/88
[2019-08-12] MEDS ORDERED: LORazepam INTENSOL 2 MG/ML PO PRN (15:00)
[2019-08-12] MEDS ORDERED: AMLO5TAB4 PO (15:56)
[2019-08-12] MEDS ORDERED: HYDR12.517 PO (15:56)
[2019-08-12] MEDS ORDERED: ALEN70TA6 PO (15:56)
[2019-08-12 20:13] VITALS: BP 150/83
[2019-08-12] MEDS ORDERED: ATORVASTATIN 10 MG TABLET PO SCH (21:00)
[2019-08-13 02:30] VITALS: BP 103/61
[2019-08-13 08:51] VITALS: BP 144/84
[2019-08-13] MEDS ORDERED: LISINOPRIL 20 MG TABLET PO SCH (09:00)
[2019-08-13] MEDS ORDERED: HYDROCHLOROTHIAZIDE 12.5 MG CAPSULE PO SCH (09:00)
[2019-08-13] MEDS ORDERED: AMLODIPINE 5 MG TABLET PO SCH (09:00)
[2019-08-13] MEDS ORDERED: CALCIUM/VITAMIN D3 250-125 TABLET PO SCH (09:00)
[2019-08-13 12:58] VITALS: BP 171/91
[2019-08-13 14:02] VITALS: BP 121/70
== END 2019-08-13 16:40 | disposition home or self-care (01) ==
LOC: ED 08:54 → EDIP 12:00 → INTOOBSV 12:00 → 4EST 15:37 → DCLOUNGE 08-13 16:26
PROVIDERS: ADMIT Family Medicine; ATTEND Internal Medicine Infectious Disease
DX: R42 Dizziness and giddiness (principal); R55 Syncope and collapse; I10 Essential (primary) hypertension; M81.0 Age-related osteoporosis without current pathological fracture; K52.9 Noninfective gastroenteritis and colitis, unspecified; J45.909 Unspecified asthma, uncomplicated; F41.1 Generalized anxiety disorder; J38.1 Polyp of vocal cord and larynx; E83.51 Hypocalcemia; H40.10X0 Unspecified open-angle glaucoma, stage unspecified; Z87.891 Personal history of nicotine dependence; Z79.899 Other long term (current) drug therapy
CPT/HCPCS: 36415; 70551; 80053; 81001; 85025; 87086; 93005; 96372; 97161; 97530; 99285; G0378; J1650

== ENCOUNTER 2019-09-18 11:03 | Observation (INO) | payer MEDICARE, OTHER ==
[~2019-09-18] VITALS: Ht 152.4 cm; Wt 56.0 kg
[~2019-09-18 11:03] MED LIST changes: +ALEN70TA6 PO; +AMLO5TAB4 PO; +BUPIVACAINE/PF-EPI 0.25% 1:200K ONE; +GENTAMICIN 80 MG/2 ML ONE; +VANCOMYCIN 500 MG ONE
[2019-09-18 12:11] VITALS: BP 129/97
[2019-09-18] MEDS ORDERED: LACTATED RINGERS 1,000 ML IV SCH (12:19)
[2019-09-18] MEDS ORDERED: CHLORHEXIDINE 15 ML UDC ONE (12:22)
[2019-09-18] MEDS ORDERED: CHLORHEXIDINE 15 ML UDC MM ONE (12:30)
[2019-09-18] MEDS ORDERED: FENTANYL PF 250 MCG/5ML ONE (16:15)
[2019-09-18] MEDS ORDERED: DEXAMETHASONE 4 MG/ML, 1ML ONE (18:11)
[2019-09-18] MEDS ORDERED: CEFAZOLIN 1,000 MG ONE (18:11)
[2019-09-18] MEDS ORDERED: ONDANSETRON 2MG/ML, 2ML ONE (18:11)
[2019-09-18] MEDS ORDERED: PROPOFOL 10 MG/ML, 20ML ONE (18:11)
[2019-09-18] MEDS ORDERED: FENTANYL PF 100 MCG/2ML IV PRN (19:00)
[2019-09-18] MEDS ORDERED: HYDROmorphone 1 MG/ML, 1ML INJ IVPush PRN (19:00)
[2019-09-18] MEDS ORDERED: ONDANSETRON 2MG/ML, 2ML IVPush PRN (19:00)
[2019-09-18] MEDS ORDERED: ACETAMINOPHEN 325 MG TABLET PO PRN (19:00)
[2019-09-18] MEDS ORDERED: OXYcodone 5 MG/5 ML ORAL.SOL UDC PO PRN (19:00)
[2019-09-18] MEDS ORDERED: PROMETHAZINE 25 MG/ML, 1ML IVPush PRN (19:00)
[2019-09-18] MEDS ORDERED: PROMETHAZINE 25 MG SUPP PR PRN (19:00)
[2019-09-18 20:00] VITALS: BP 165/94
[2019-09-18] MEDS ORDERED: HYDROmorphone 1 MG/ML, 1ML INJ IV PRN (20:30)
[2019-09-18] MEDS ORDERED: ONDANSETRON 2MG/ML, 2ML IV PRN (20:30)
[2019-09-18] MEDS ORDERED: OXYcodone/APAP 5/325MG TABLET PO PRN (20:30)
[2019-09-18] MEDS ORDERED: HYDROcodone/APAP 5/325 TABLET PO PRN (20:30)
[2019-09-18] MEDS ORDERED: IBUPROFEN 600 MG TABLET PO PRN (20:30)
[2019-09-19] MEDS ORDERED: hydrALAzine 20 MG/ML, 1ML IV PRN
[2019-09-19 00:04] VITALS: BP 161/75
[2019-09-19 03:53] VITALS: BP 125/77
[2019-09-19 07:41] VITALS: BP 116/70
[2019-09-19 07:43] VITALS: BP 103/65
== END 2019-09-19 12:55 | disposition home or self-care (01) ==
LOC: OUT 11:03 → 4NE 19:55 → OUT 20:22 → 4NE 20:22 → DCLOUNGE 09-19 12:38
PROVIDERS: ADMIT Obstetrics & Gynecology Female Pelvic Medicine and Reconstructive Surgery; ATTEND Obstetrics & Gynecology Female Pelvic Medicine and Reconstructive Surgery
DX: Z03.818 Encounter for observation for suspected exposure to other biological agents ruled out (principal); N81.89 Other female genital prolapse; N81.5 Vaginal enterocele; N81.6 Rectocele; N39.46 Mixed incontinence; N94.10 Unspecified dyspareunia; R10.2 Pelvic and perineal pain; N32.81 Overactive bladder; I10 Essential (primary) hypertension; J45.909 Unspecified asthma, uncomplicated; F41.1 Generalized anxiety disorder; M81.0 Age-related osteoporosis without current pathological fracture; F17.200 Nicotine dependence, unspecified, uncomplicated; Z87.440 Personal history of urinary (tract) infections; Z88.0 Allergy status to penicillin
CPT/HCPCS: 36415; 56810; 57265; 57282; 57289; 87635; C1771; G0378; J0690; J1100; J1580; J2405; J2704; J3010; J3370; J7120

== ENCOUNTER 2019-11-07 12:44 | Emergency (ER) | payer MEDICARE ==
[~2019-11-07] VITALS: Ht 152.4 cm; Wt 54.0 kg
[~2019-11-07 12:44] MED LIST changes: -BUPIVACAINE/PF-EPI 0.25% 1:200K ONE; +ERGO500018 PO; -GENTAMICIN 80 MG/2 ML ONE; +LISI10TA2 PO; +MECL12.581 PO; +METO10TA2 PO; +MIRT-34 PO; +POLY17PO5 PO; -VANCOMYCIN 500 MG ONE
--- NOTE | 2019-11-07 12:54 | NUR ---
ramu. report received from ems. pt c/o diarrhea x 1 week. unknown abd sx here about 1 month ago. denies abd pain/n/v/abx taken. pt's aox4. resps even and unlabored. bp/spo2 monitors in place. call light within reach. pa at bedside to evaluate at this time.
--- NOTE | 2019-11-07 12:59 | NUR ---
warm blanket given per request.
[2019-11-07] MEDS ORDERED: PLEASE ENTER HEIGHT AND WEIGHT MC SCH (13:00)
--- NOTE | 2019-11-07 13:09 | NUR ---
pt amb to br with steady gait. urine cup and hat given.
--- NOTE | 2019-11-07 13:21 | NUR ---
pt provided urine sample, but no stool sample yet. urine collected and ua sent. pt stated"i will try it later."
--- NOTE | 2019-11-07 13:27 | NUR ---
pt to xray at this time.
[2019-11-07 13:40] LABS: MICROSCOPIC INDICATED
[2019-11-07] MEDS ORDERED: SODIUM CHLORIDE FLUSH 10ML SYR IVF ONE (14:00)
[2019-11-07 14:09] LABS: BASOPHILS # (AUTO) 0.02 x10^3/uL (0-0.1); BASOPHILS % (AUTO) 1 % (0-1); EOSINOPHILS # (AUTO) 0.09 x10^3/uL (0-0.4); EOSINOPHILS % (AUTO) 2 % (1-7); LYMPHOCYTES # (AUTO) 1.96 x10^3/uL (1-3.4); LYMPHOCYTES % (AUTO) 39 % (22-44); MD NO; MEAN CORPUSCULAR HEMOGLOBIN 30.5 pg (27.0-34.8); MEAN CORPUSCULAR HGB CONC 31.6 g/dL (32.4-35.8); MEAN CORPUSCULAR VOLUME 96.6 fL (80-100); MEAN PLATELET VOLUME 6.6 fL (7.4-10.4); MONOCYTES # (AUTO) 0.41 x10^3/uL (0.2-0.8); MONOCYTES % (AUTO) 8 % (2-9); NEUTROPHILS # (AUTO) 2.52 x10^3/uL (1.8-6.8); NEUTROPHILS % (AUTO) 50 % (42-75); PLATELET COUNT 297 x10^3/uL (130-400); RED BLOOD COUNT 3.12 x10^6/uL (3.82-5.3); RED CELL DISTRIBUTION WIDTH 16.9 % (9.6-15.2)
--- NOTE | 2019-11-07 14:17 | NUR ---
pt back to room. warm blanket given again per request.
[2019-11-07 15:01] LABS: ALANINE AMINOTRANSFERASE 12 U/L (12-78); ALBUMIN 2.8 g/dL (3.4-5.0); ANION GAP 8 mmol/L (5-15); CALCIUM 8.3 mg/dL (8.5-10.1); CHLORIDE 109 mmol/L (98-107); CREATININE 0.73 mg/dL (0.55-1.02)
[2019-11-07 15:03] LABS: ALKALINE PHOSPHATASE 52 U/L (45-117); BILIRUBIN,TOTAL 0.5 mg/dL (0.2-1.0); TOTAL PROTEIN 6.2 g/dL (6.4-8.2)
--- NOTE | 2019-11-07 15:19 | NUR ---
PT TO CT AT THIS TIME.
[2019-11-07] MEDS ORDERED: POTASSIUM CHLORIDE 20 MEQ PACKET PO ONE (15:30)
[2019-11-07] MEDS ORDERED: DIPHENHYDRAMINE 50 MG/ML, 1ML ONE (15:38)
--- NOTE | 2019-11-07 15:48 | NUR ---
PT IN CT AT THIS TIME AND CT CALLED THIS RN/EDMD TO GIVE BENADRYL D/T ALLERGY OF CONTRAST. EDMD ORDERED AND PT MEDICATED PER EMAR AT CT.
--- NOTE | 2019-11-07 15:52 | NUR ---
PT BACK TO ROOM FROM CT.
--- NOTE | 2019-11-07 15:53 | NUR ---
MEDICATION ORDERED FROM PHARMACY AT THIS TIME.
[2019-11-07] MEDS ORDERED: OMNIPAQUE 350 MG/ML, 100ML BOTTLE ONE (15:55)
[2019-11-07] MEDS ORDERED: DIPHENHYDRAMINE 50 MG/ML, 1ML IVPush ONE (16:00)
--- NOTE | 2019-11-07 16:14 | NUR ---
PT AMB TO BR WITH THIS RN. HAT GIVEN. PT STATED"I'LL TRY."
--- NOTE | 2019-11-07 16:28 | NUR ---
pt was not able to provide stool sample at this time. edmd/pa notified.
[2019-11-07] MEDS ORDERED: POTASSIUM CHLORIDE 20 MEQ PACKET ONE (17:06)
[2019-11-07 17:07] VITALS: BP 108/61
--- NOTE | 2019-11-07 17:09 | NUR ---
PT MEDICATED PER EMAR. PT TOLERATED WELL.
--- NOTE | 2019-11-07 17:30 | NUR ---
Patient given discharge instructions and they have confirmed that they understand the instructions. Patient ambulatory with steady gait.
== END 2019-11-07 17:31 | disposition home or self-care (01) ==
LOC: ED 13:25
DX: N30.00 Acute cystitis without hematuria (principal); R19.7 Diarrhea, unspecified; R10.84 Generalized abdominal pain; E87.6 Hypokalemia; I10 Essential (primary) hypertension; Z87.891 Personal history of nicotine dependence
CPT/HCPCS: 36415; 74022; 74177; 80053; 81001; 83690; 85025; 87086; 96374; 99285; J1200; Q9967

== ENCOUNTER 2019-11-09 16:46 | Emergency (ER) | payer MEDICARE ==
[~2019-11-09] VITALS: Ht 154.9 cm; Wt 53.8 kg
[2019-11-09 17:40] LABS: BASOPHILS # (AUTO) 0.03 x10^3/uL (0-0.1); BASOPHILS % (AUTO) 1 % (0-1); EOSINOPHILS # (AUTO) 0.09 x10^3/uL (0-0.4); EOSINOPHILS % (AUTO) 2 % (1-7); LYMPHOCYTES # (AUTO) 2.04 x10^3/uL (1-3.4); LYMPHOCYTES % (AUTO) 39 % (22-44); MD NO; MEAN CORPUSCULAR HEMOGLOBIN 30.4 pg (27.0-34.8); MEAN CORPUSCULAR HGB CONC 31.8 g/dL (32.4-35.8); MEAN PLATELET VOLUME 6.8 fL (7.4-10.4); MONOCYTES # (AUTO) 0.45 x10^3/uL (0.2-0.8); MONOCYTES % (AUTO) 9 % (2-9); NEUTROPHILS # (AUTO) 2.61 x10^3/uL (1.8-6.8); NEUTROPHILS % (AUTO) 50 % (42-75); PLATELET COUNT 275 x10^3/uL (130-400); RED BLOOD COUNT 3.24 x10^6/uL (3.82-5.3); RED CELL DISTRIBUTION WIDTH 16.7 % (9.6-15.2)
[2019-11-09 17:51] LABS: ALANINE AMINOTRANSFERASE 13 U/L (12-78); ALBUMIN 2.9 g/dL (3.4-5.0); ANION GAP 5 mmol/L (5-15); CALCIUM 8.3 mg/dL (8.5-10.1); CHLORIDE 109 mmol/L (98-107); CREATININE 0.99 mg/dL (0.55-1.02)
[2019-11-09 17:53] LABS: ALKALINE PHOSPHATASE 49 U/L (45-117); BILIRUBIN,TOTAL 0.4 mg/dL (0.2-1.0); TOTAL PROTEIN 6.2 g/dL (6.4-8.2)
--- NOTE | 2019-11-09 17:58 | NUR ---
ALL RESULTS ARE BACK AT THIS TIME. PT UNABLE TO PROVIDE STOOL SAMPLE. CHART UP FOR RECHECK.
[2019-11-09] MEDS ORDERED: POTASSIUM CHLORIDE 20 MEQ TAB.ER.PRT ONE (18:21)
--- NOTE | 2019-11-09 18:24 | NUR ---
PIV PLACED. MEDS ADMIN PER MAY. PT PROVIDED WARM BLANKET.
[2019-11-09] MEDS ORDERED: MAGNESIUM SULFATE 1 GM in SODIUM CHLORIDE 0.9% 50 ML IV ONE (19:00)
[2019-11-09] MEDS ORDERED: POTASSIUM CHLORIDE 20 MEQ TAB.ER.PRT PO ONE (19:00)
[2019-11-09] MEDS ORDERED: NS + 40MEQ KCL 1,000 ML IV ONE (20:52)
[2019-11-09] MEDS ORDERED: SODIUM CHLORIDE FLUSH 10ML SYR IVF PRN (21:00)
[2019-11-09] MEDS ORDERED: POTASSIUM CHLORIDE 40 MEQ in SODIUM CHLORIDE 0.9% 1,000 ML IV ONE (21:00)
[2019-11-09] MEDS ORDERED: ATORVASTATIN 10 MG TABLET PO SCH (21:00)
--- NOTE | 2019-11-09 21:02 | NUR ---
PT UNABLE TO VERIFY HOME MEDS AT THIS TIME.
--- NOTE | 2019-11-09 21:10 | NUR ---
PT AMBULATED TO RESTROOM WITH CGA. PT ABLE TO MOVE TO EDGE OF BED INDEPENDENTLY.
[2019-11-09] MEDS: NS + 20MEQ KCL 1,000 ML IV SCH (21:26)
[2019-11-09] MEDS ORDERED: LABETALOL 5MG/ML, 20ML IVPush PRN (21:30)
[2019-11-09] MEDS ORDERED: ACETAMINOPHEN 325 MG TABLET PO PRN (21:30)
--- NOTE | 2019-11-09 21:46 | NUR ---
PT TRANSFERRED TO HOSPITAL BED. PT TO BE ER HOLD UNTIL PT CAN PROVIDE STOOL SAMPLE WITH NEG C-DIFF RESULTS. BEDSIDE COMMODE PLACED AT BEDSIDE. PT VERBALIZED UNDERSTANDING OF ER HOLD.
[2019-11-09] MEDS ORDERED: HEPARIN 5,000 UNITS/ML, 1ML ONE (21:51)
[2019-11-09] MEDS: HEPARIN 5,000 UNITS/ML, 1ML SQ SCH (22:09)
[2019-11-09] MEDS ORDERED: MECLIZINE 25 MG TABLET PO PRN (22:30)
--- NOTE | 2019-11-09 22:35 | NUR ---
NS +20K TO START AFTER NS +40K HAS FINISHED INFUSING.
--- NOTE | 2019-11-09 22:52 | NUR ---
REPORT GIVEN TO UVALDO MCGREGOR.
--- NOTE | 2019-11-09 22:53 | NUR ---
Report received from UVALDO Chamorro. This RN to assume care.
--- NOTE | 2019-11-09 23:40 | NUR ---
Patient verbalized her concern that she was being used as a guineu pig here because she was asked by the hospitalist what she would want done if something were to happen to her. Reassured patient that we ask every patient what their wishes are when she is admitted. Patient understood. Assisted patient to the bedside commode.
--- NOTE | 2019-11-10 01:06 | NUR ---
REPORT FROM UVALDO ROBBINS. PT CARE ASSUMED.
--- NOTE | 2019-11-10 01:59 | NUR ---
PT PROVIDED WITH MORE WARM BLANKETS, PER REQUEST. DENIES ANY FURTHER NEEDS AT THIS TIME. CALL LIGHT IN REACH.
--- NOTE | 2019-11-10 02:12 | NUR ---
REPORT FROM UVALDO PORTILLO
--- NOTE | 2019-11-10 03:49 | NUR ---
PT RESTING ON HOSPITAL BED. EYES CLOSED W/ RESPIRATIONS EVEN AND UNLABORED.
[2019-11-10 05:38] LABS: CHLORIDE 115 mmol/L (98-107)
[2019-11-10 05:48] LABS: ANION GAP 6 mmol/L (5-15); CALCIUM 7.9 mg/dL (8.5-10.1); CREATININE 0.52 mg/dL (0.55-1.02)
[2019-11-10] MEDS ORDERED: OMEPRAZOLE 20 MG CAPSULE.DR PO SCH (06:00)
[2019-11-10 06:09] LABS: BASOPHILS # (AUTO) 0.06 x10^3/uL (0-0.1); BASOPHILS % (AUTO) 2 % (0-1); EOSINOPHILS # (AUTO) 0.11 x10^3/uL (0-0.4); EOSINOPHILS % (AUTO) 3 % (1-7); LYMPHOCYTES # (AUTO) 1.83 x10^3/uL (1-3.4); LYMPHOCYTES % (AUTO) 47 % (22-44); MD NO; MEAN CORPUSCULAR HEMOGLOBIN 30.3 pg (27.0-34.8); MEAN CORPUSCULAR HGB CONC 31.9 g/dL (32.4-35.8); MEAN PLATELET VOLUME 7.2 fL (7.4-10.4); MONOCYTES # (AUTO) 0.28 x10^3/uL (0.2-0.8); MONOCYTES % (AUTO) 7 % (2-9); NEUTROPHILS # (AUTO) 1.64 x10^3/uL (1.8-6.8); NEUTROPHILS % (AUTO) 42 % (42-75); PLATELET COUNT 226 x10^3/uL (130-400); RED BLOOD COUNT 2.73 x10^6/uL (3.82-5.3); RED CELL DISTRIBUTION WIDTH 16.7 % (9.6-15.2)
[2019-11-10] MEDS ORDERED: HEPARIN 5,000 UNITS/ML, 1ML ONE (06:31)
[2019-11-10] MEDS ORDERED: NS + 20MEQ KCL 1,000 ML IV ONE (06:31)
[2019-11-10] MEDS ORDERED: OMEPRAZOLE 20 MG CAPSULE.DR ONE (06:31)
[2019-11-10] MEDS: HEPARIN 5,000 UNITS/ML, 1ML SQ SCH (06:40)
[2019-11-10] MEDS: NS + 20MEQ KCL 1,000 ML IV SCH (06:41)
--- NOTE | 2019-11-10 06:50 | NUR ---
PT MEDICATED PER EMAR. PT STATES SHE IS STILL UNABLE TO PRODUCE STOOL SAMPLE.
--- NOTE | 2019-11-10 08:06 | NUR ---
TASK RN: PT AMBULATED TO THE COMMODE W/ A STEADY GAIT. STOOL COLLECTED AND WALKED TO LAB. PT RETURNED TO HOSPITAL BED.
[2019-11-10] MEDS ORDERED: LISINOPRIL 5 MG TABLET PO SCH (09:00)
[2019-11-10 09:01] VITALS: BP 144/69
[2019-11-10 09:02] LABS: CLOSTRIDIUM DIFFICILE ANTIGEN NEGATIVE; CLOSTRIDIUM DIFFICILE TOXIN NEGATIVE (Negative)
[2019-11-10] MEDS ORDERED: LISINOPRIL 5 MG TABLET ONE (09:13)
[2019-11-10] MEDS ORDERED: LOPE-114 PO (12:49)
--- NOTE | 2019-11-10 13:45 | NUR ---
RIVER TESTER: DISCHARGE NOTE BY PROXY FOR SARAH BAILON, ONLY
[2019-11-10 17:18] LABS: OCCULT BLOOD POSITIVE (NEGATIVE)
[2019-11-11] MEDS ORDERED: ERGOCALCIFEROL 50,000 UNIT CAPSULE PO SCH (21:00)
== END 2019-11-10 13:46 | disposition home or self-care (01) ==
LOC: ED 18:58 → EDIP 20:43 → UNDOADMIN 20:43
DX: R19.7 Diarrhea, unspecified (principal); E87.6 Hypokalemia; E78.5 Hyperlipidemia, unspecified; I11.0 Hypertensive heart disease with heart failure; I50.9 Heart failure, unspecified; K21.9 Gastro-esophageal reflux disease without esophagitis; J44.9 Chronic obstructive pulmonary disease, unspecified; E11.9 Type 2 diabetes mellitus without complications
CPT/HCPCS: 36415; 74018; 80048; 80053; 82272; 85025; 87046; 87324; 87427; 89055; 96365; 96366; 96367; 96372; 99285; J1644; J3475; J3480; J7030; 74022; 74177; 81001; 83690; 87086; 96374; Q9967; J1200

== ENCOUNTER 2019-12-10 19:36 | Emergency (ER) | payer MEDICARE ==
[~2019-12-10] VITALS: Ht 152.4 cm; Wt 50.1 kg
[~2019-12-10 19:36] MED LIST changes: +LOPE-114 PO
[2019-12-10] MEDS ORDERED: MORPHINE SULFATE 4 MG/ML, 1ML ONE (20:24)
[2019-12-10] MEDS ORDERED: ONDANSETRON 2MG/ML, 2ML ONE (20:24)
[2019-12-10] MEDS ORDERED: MORPHINE SULFATE 4 MG/ML, 1ML IVPush ONE (20:30)
[2019-12-10] MEDS ORDERED: ONDANSETRON 2MG/ML, 2ML IVPush ONE (20:30)
[2019-12-10 20:54] LABS: ANION GAP 6 mmol/L (5-15); CALCIUM 9.1 mg/dL (8.5-10.1); CHLORIDE 104 mmol/L (98-107); CREATININE 0.91 mg/dL (0.55-1.02)
[2019-12-10 21:08] LABS: BASOPHILS % (AUTO) 1 % (0-1); EOSINOPHILS % (AUTO) 11 % (1-7); LYMPHOCYTES % (AUTO) 50 % (22-44); MEAN CORPUSCULAR HEMOGLOBIN 27.9 pg (27.0-34.8); MEAN CORPUSCULAR HGB CONC 32.2 g/dL (32.4-35.8); MEAN PLATELET VOLUME 8.5 fL (7.4-10.4); MONOCYTES % (AUTO) 6 % (2-9); NEUTROPHILS % (AUTO) 33 % (42-75); PLATELET COUNT 214 x10^3/uL (130-400); RED BLOOD COUNT 4.28 x10^6/uL (3.82-5.3); RED CELL DISTRIBUTION WIDTH 15.7 % (9.6-15.2)
[2019-12-10 21:26] LABS: MD NO
[2019-12-10] MEDS ORDERED: POTASSIUM CHLORIDE 20 MEQ TAB.ER.PRT PO ONE (22:30)
[2019-12-10] MEDS ORDERED: POTASSIUM CHLORIDE 20 MEQ TAB.ER.PRT ONE (22:39)
[2019-12-10 23:18] LABS: MICROSCOPIC INDICATED
--- NOTE | 2019-12-10 23:18 | NUR ---
PT RESTING IN BED, PT DENIED THE ABILITY TO PROVIDE A STOOL SAMPLE. PROVIDER AWARE. PT ON MONITOR AND PT MEDICATED PER EMAR
[2019-12-10] MEDS ORDERED: OMNIPAQUE 350 MG/ML, 100ML BOTTLE ONE (23:37)
[2019-12-11 00:36] VITALS: BP 116/53
== END 2019-12-11 00:40 | disposition home or self-care (01) ==
LOC: ED 20:00
DX: K52.9 Noninfective gastroenteritis and colitis, unspecified (principal); I10 Essential (primary) hypertension; J45.909 Unspecified asthma, uncomplicated; Z90.49 Acquired absence of other specified parts of digestive tract; Z90.89 Acquired absence of other organs; Z90.710 Acquired absence of both cervix and uterus
CPT/HCPCS: 36415; 74177; 80048; 81001; 85025; 87086; 96374; 96375; 99285; J2270; J2405; Q9967

== ENCOUNTER 2020-06-17 16:03 | Emergency (ER) | payer MEDICARE ==
[~2020-06-17] VITALS: Ht 152.4 cm; Wt 52.0 kg
[~2020-06-17 16:03] MED LIST changes: -ALEN70TA6 PO; +ALEN70TA77 PO; +AMLO-211 PO; -AMLO10TA8 PO; +LISI10TA19 PO; -LISI10TA2 PO; -MECL12.581 PO; +MECL12.590 PO
[2020-06-17 16:59] LABS: BASOPHILS % (AUTO) 0 % (0-1); EOSINOPHILS % (AUTO) 1 % (1-7); LYMPHOCYTES % (AUTO) 51 % (22-44); MEAN CORPUSCULAR HEMOGLOBIN 30.6 pg (27.0-34.8); MEAN CORPUSCULAR HGB CONC 34.2 g/dL (32.4-35.8); MEAN PLATELET VOLUME 8.4 fL (7.4-10.4); MONOCYTES % (AUTO) 7 % (2-9); NEUTROPHILS % (AUTO) 41 % (42-75); PLATELET COUNT 174 x10^3/uL (130-400); RED BLOOD COUNT 4.38 x10^6/uL (3.82-5.3); RED CELL DISTRIBUTION WIDTH 13.9 % (9.6-15.2)
[2020-06-17 17:11] LABS: ALBUMIN 3.7 g/dL (3.4-5.0); ANION GAP 7 mmol/L (5-15); CALCIUM 8.6 mg/dL (8.5-10.1); CHLORIDE 104 mmol/L (98-107)
[2020-06-17 17:15] LABS: ALANINE AMINOTRANSFERASE 27 U/L (12-78); ALKALINE PHOSPHATASE 36 U/L (45-117); BILIRUBIN,TOTAL 0.9 mg/dL (0.2-1.0); MD SCAN
--- NOTE | 2020-06-17 17:52 | NUR ---
senior designer: pt from lobby to room 33
--- NOTE | 2020-06-17 18:10 | NUR ---
INTERMITTENT DIARRHEA X 3 MONTHS. HAD HAD MULTIPLE COURSS OF ABX FOR BLADDER SURGERIES/UTI. ALSO WITH HX OF BOWEL OBSTRUCTION HAS SEEN DR. Major WITH [facility] NO ABD PAIN, NO N/V VSS, APPEARS WELL UPDATED ON ESTIMATED POC
--- NOTE | 2020-06-17 18:47 | NUR ---
TRIAGE COLLECTED CC UA MARKED "COLLECTED IN COMPUTER" PATIENT UP TO COMMODE TO TRY TO OBTAIN STOOL SAMPLE
[2020-06-17 18:55] LABS: MICROSCOPIC AUTO
--- NOTE | 2020-06-17 19:08 | NUR ---
UNABLE TO STOOL FOR SAMPLE UPDATED ON ESTIMATED POC
[2020-06-17 19:49] VITALS: BP 137/71
== END 2020-06-17 19:59 | disposition home or self-care (01) ==
LOC: ED 19:53
DX: R19.7 Diarrhea, unspecified (principal); R10.9 Unspecified abdominal pain; I10 Essential (primary) hypertension; J45.909 Unspecified asthma, uncomplicated; Z90.89 Acquired absence of other organs; Z90.49 Acquired absence of other specified parts of digestive tract; Z90.710 Acquired absence of both cervix and uterus; Z87.891 Personal history of nicotine dependence
CPT/HCPCS: 36415; 74021; 80053; 81001; 83690; 85025; 87086; 99284

== ENCOUNTER 2020-06-25 12:34 | Emergency (ER) | payer MEDICARE ==
[~2020-06-25] VITALS: Ht 160 cm; Wt 51.5 kg
[2020-06-25] MEDS ORDERED: ASPIRIN 81 MG TABLET CHEW ONE (12:48)
[2020-06-25] MEDS ORDERED: ASPIRIN 81 MG TABLET CHEW PO ONE (13:00)
--- NOTE | 2020-06-25 13:31 | NUR ---
ASSUMED CARE OF PT
[2020-06-25 13:41] LABS: BASOPHILS % (AUTO) 0 % (0-1); EOSINOPHILS % (AUTO) 1 % (1-7); LYMPHOCYTES % (AUTO) 48 % (22-44); MEAN CORPUSCULAR HEMOGLOBIN 30.2 pg (27.0-34.8); MEAN CORPUSCULAR HGB CONC 34.1 g/dL (32.4-35.8); MEAN PLATELET VOLUME 8.2 fL (7.4-10.4); MONOCYTES % (AUTO) 7 % (2-9); NEUTROPHILS % (AUTO) 43 % (42-75); PLATELET COUNT 171 x10^3/uL (130-400); RED BLOOD COUNT 4.07 x10^6/uL (3.82-5.3); RED CELL DISTRIBUTION WIDTH 13.9 % (9.6-15.2)
[2020-06-25 13:42] LABS: MD NO
[2020-06-25] MEDS ORDERED: LISI-167 PO (13:48)
[2020-06-25] MEDS ORDERED: CALC-780 PO (13:48)
[2020-06-25] MEDS ORDERED: HYDR25TA6 PO (13:48)
[2020-06-25 13:50] LABS: ALANINE AMINOTRANSFERASE 20 U/L (12-78); ALBUMIN 3.6 g/dL (3.4-5.0); ANION GAP 6 mmol/L (5-15); CALCIUM 8.8 mg/dL (8.5-10.1); CHLORIDE 103 mmol/L (98-107); CREATININE 0.96 mg/dL (0.55-1.02)
[2020-06-25 13:54] LABS: ALKALINE PHOSPHATASE 32 U/L (45-117); BILIRUBIN,TOTAL 1.4 mg/dL (0.2-1.0); TOTAL PROTEIN 6.6 g/dL (6.4-8.2); TROPONIN I < 0.015 ng/mL (0.000-0.045)
--- NOTE | 2020-06-25 14:49 | NUR ---
PT AND SPOUSE UPDATED
[2020-06-25 15:08] VITALS: BP 122/61
== END 2020-06-25 15:36 | disposition home or self-care (01) ==
LOC: ED 15:00
DX: R07.89 Other chest pain (principal); I10 Essential (primary) hypertension; J45.909 Unspecified asthma, uncomplicated; Z86.39 Personal history of other endocrine, nutritional and metabolic disease; Z90.49 Acquired absence of other specified parts of digestive tract; Z90.89 Acquired absence of other organs; Z90.710 Acquired absence of both cervix and uterus; Z87.891 Personal history of nicotine dependence
CPT/HCPCS: 36415; 71045; 80053; 84484; 85025; 93005; 99285

== ENCOUNTER 2020-07-15 21:35 | Emergency (ER) | payer MEDICARE ==
[~2020-07-15] VITALS: Ht 160 cm; Wt 50.0 kg
[2020-07-15 22:18] LABS: BASOPHILS % (AUTO) 0 % (0-1); EOSINOPHILS % (AUTO) 1 % (1-7); LYMPHOCYTES % (AUTO) 51 % (22-44); MEAN CORPUSCULAR HEMOGLOBIN 30.4 pg (27.0-34.8); MEAN CORPUSCULAR HGB CONC 33.8 g/dL (32.4-35.8); MEAN PLATELET VOLUME 8.4 fL (7.4-10.4); MONOCYTES % (AUTO) 7 % (2-9); NEUTROPHILS % (AUTO) 41 % (42-75); PLATELET COUNT 165 x10^3/uL (130-400); RED CELL DISTRIBUTION WIDTH 14.9 % (9.6-15.2)
[2020-07-15 22:21] LABS: MD SCAN
[2020-07-15 22:28] LABS: ALANINE AMINOTRANSFERASE 27 U/L (12-78); ALBUMIN 3.7 g/dL (3.4-5.0); ANION GAP 5 mmol/L (5-15); CALCIUM 8.7 mg/dL (8.5-10.1); CHLORIDE 104 mmol/L (98-107); CREATININE 0.95 mg/dL (0.55-1.02)
[2020-07-15 22:29] LABS: ALKALINE PHOSPHATASE 35 U/L (45-117); TOTAL PROTEIN 6.8 g/dL (6.4-8.2)
[2020-07-15 23:07] VITALS: BP 131/76
--- NOTE | 2020-07-15 23:08 | NUR ---
STOOL SENT PER DR OBRIEN, PT DOES NOT NEED TO WAIT FOR RESULTS. VS STABLE. PT DISCHARGED PER DR OBRIEN.
[2020-07-15 23:38] LABS: CLOSTRIDIUM DIFFICILE ANTIGEN NEGATIVE; CLOSTRIDIUM DIFFICILE TOXIN NEGATIVE (Negative)
[2020-07-16 09:27] LABS: CRYPTOSPORIDIUM ANTIGEN Negative (Negative)
== END 2020-07-15 23:18 | disposition home or self-care (01) ==
LOC: ED 22:56
DX: R19.7 Diarrhea, unspecified (principal); R53.1 Weakness; I10 Essential (primary) hypertension; R42 Dizziness and giddiness; E78.5 Hyperlipidemia, unspecified; J45.909 Unspecified asthma, uncomplicated; Z90.89 Acquired absence of other organs; Z90.710 Acquired absence of both cervix and uterus; Z87.891 Personal history of nicotine dependence
CPT/HCPCS: 36415; 80053; 83690; 85025; 87324; 87328; 87329; 99283

== ENCOUNTER → 2020-07-15 | Outpatient (CLI) | payer MEDICARE ==
[~2020-07-15] MED LIST changes: +CALC-780 PO
== END | disposition home or self-care (01) ==
LOC: CFH 10:48
PROVIDERS: ATTEND Internal Medicine Cardiovascular Disease
DX: I35.8 Other nonrheumatic aortic valve disorders (principal); R07.89 Other chest pain
CPT/HCPCS: 93306

== ENCOUNTER 2020-07-26 19:06 | Emergency (ER) | payer MEDICARE ==
[~2020-07-26] VITALS: Ht 160 cm; Wt 51.6 kg
[2020-07-26 19:32] LABS: BASOPHILS % (AUTO) 0 % (0-1); EOSINOPHILS % (AUTO) 1 % (1-7); LYMPHOCYTES % (AUTO) 44 % (22-44); MEAN CORPUSCULAR HEMOGLOBIN 30.9 pg (27.0-34.8); MEAN CORPUSCULAR HGB CONC 34.2 g/dL (32.4-35.8); MEAN PLATELET VOLUME 7.5 fL (7.4-10.4); MONOCYTES % (AUTO) 5 % (2-9); NEUTROPHILS % (AUTO) 50 % (42-75); PLATELET COUNT 183 x10^3/uL (130-400); RED BLOOD COUNT 4.34 x10^6/uL (3.82-5.3); RED CELL DISTRIBUTION WIDTH 14.4 % (9.6-15.2)
--- NOTE | 2020-07-26 19:33 | NUR ---
PT CAME IN BECAUSE SHE THOUGHT SHE TOOK TOO MUCH BP MEDS TONIGHT, HER BP KEPT GOING UP AND SHE STARTED FEELING RESTLESS. PT IS HOOKED UP TO ALL THE MONITORS AND IS RESTING COMFORTABLY ON THE GURNEY, DENIES NEEDS AT THIS TIME
[2020-07-26 19:34] LABS: MD NO
[2020-07-26 19:44] LABS: ALBUMIN 3.8 g/dL (3.4-5.0); ANION GAP 6 mmol/L (5-15); CALCIUM 8.8 mg/dL (8.5-10.1); CHLORIDE 105 mmol/L (98-107)
[2020-07-26 19:51] LABS: ALANINE AMINOTRANSFERASE 26 U/L (12-78); ALKALINE PHOSPHATASE 37 U/L (45-117); CREATININE 0.89 mg/dL (0.55-1.02); TOTAL PROTEIN 7.3 g/dL (6.4-8.2); TROPONIN I < 0.015 ng/mL (0.000-0.045)
--- NOTE | 2020-07-26 20:20 | NUR ---
PT RESTING COMFORTABLY ON GURNEY, DENIES NEEDS AT THIS TIME
[2020-07-26] MEDS ORDERED: POTASSIUM CHLORIDE 20 MEQ TAB.ER.PRT ONE (20:40)
[2020-07-26 20:43] VITALS: BP 162/85
--- NOTE | 2020-07-26 20:59 | NUR ---
Patient given discharge instructions and they have confirmed that they understand the instructions. Patient ambulatory with steady gait. No s/s of distress
[2020-07-26] MEDS ORDERED: POTASSIUM CHLORIDE 20 MEQ TAB.ER.PRT PO ONE (21:00)
== END 2020-07-26 21:01 | disposition home or self-care (01) ==
LOC: ED 20:05
DX: I10 Essential (primary) hypertension (principal); E78.5 Hyperlipidemia, unspecified; E07.9 Disorder of thyroid, unspecified; Z90.49 Acquired absence of other specified parts of digestive tract
CPT/HCPCS: 36415; 71045; 80053; 84484; 85025; 93005; 99285

== ENCOUNTER 2020-08-01 00:18 | Emergency (ER) | payer MEDICARE ==
[~2020-08-01] VITALS: Ht 152.4 cm; Wt 47.0 kg
--- NOTE | 2020-08-01 00:47 | NUR ---
PROVIDER AT BEDSIDE DOING EVALUATION.
[2020-08-01] MEDS ORDERED: ACETAMINOPHEN 500 MG TABLET PO ONE (01:00)
[2020-08-01 01:07] LABS: BASOPHILS % (AUTO) 0 % (0-1); EOSINOPHILS % (AUTO) 1 % (1-7); LYMPHOCYTES % (AUTO) 48 % (22-44); MEAN CORPUSCULAR HEMOGLOBIN 31.2 pg (27.0-34.8); MEAN CORPUSCULAR HGB CONC 34.6 g/dL (32.4-35.8); MONOCYTES % (AUTO) 8 % (2-9); NEUTROPHILS % (AUTO) 44 % (42-75); PLATELET COUNT 148 x10^3/uL (130-400); RED BLOOD COUNT 3.91 x10^6/uL (3.82-5.3); RED CELL DISTRIBUTION WIDTH 14.4 % (9.6-15.2)
[2020-08-01] MEDS ORDERED: ACETAMINOPHEN 500 MG TABLET ONE (01:09)
[2020-08-01 01:17] LABS: ALBUMIN 3.4 g/dL (3.4-5.0); ANION GAP 6 mmol/L (5-15); CALCIUM 8.3 mg/dL (8.5-10.1); CHLORIDE 102 mmol/L (98-107); CREATININE 0.81 mg/dL (0.55-1.02)
[2020-08-01 01:21] LABS: TROPONIN I < 0.015 ng/mL (0.000-0.045)
[2020-08-01 01:33] LABS: MD SCAN
--- NOTE | 2020-08-01 01:45 | NUR ---
PT STATES HAD HIGH BLOOD PRESSURE TONIGHT THAT STARTED AROUND 1800 170/109 THEN STARTED BECOMING ANXIOUS AROUND 2100 WITH A HEADACHE. AT MIDNIGHT DECIDED TO COME TO HOSPITAL
[2020-08-01 02:07] VITALS: BP 155/74
--- NOTE | 2020-08-01 02:30 | NUR ---
Patient given discharge instructions and they have confirmed that they understand the instructions. Patient wheeled to discharge desk, no questions at time of discharge.
== END 2020-08-01 02:32 | disposition home or self-care (01) ==
LOC: ED 00:51
DX: R51.9 Headache, unspecified (principal); I10 Essential (primary) hypertension; J45.909 Unspecified asthma, uncomplicated; E78.5 Hyperlipidemia, unspecified; Z90.89 Acquired absence of other organs; Z90.49 Acquired absence of other specified parts of digestive tract; Z90.710 Acquired absence of both cervix and uterus
CPT/HCPCS: 36415; 80048; 82040; 84484; 85025; 93005; 99284

== ENCOUNTER 2020-09-14 19:01 | Emergency (ER) | payer MEDICARE ==
[~2020-09-14] VITALS: Ht 152.4 cm; Wt 51.3 kg
[~2020-09-14 19:01] MED LIST changes: +ERGO1250 PO; -ERGO500018 PO; +MIRT-14 PO; -MIRT-34 PO
--- NOTE | 2020-09-14 19:58 | NUR ---
pt c/o of high blood pressure at home in the 170's. pt also c/o of left shoulder to elbow pain for last 4 months. states she had a shot from doctor 4 months ago for the pain. attached to monitors. vss. pt appears in pain pa at bedside for eval. bed in low position, rails engaged. call light on lap.
[2020-09-14] MEDS ORDERED: KETOROLAC 30 MG/1 ML ONE (20:20)
--- NOTE | 2020-09-14 20:27 | NUR ---
Patient is resting comfortably in bed. Bed in lowest, rails engaged, call light on lap. Vital Signs within normal limits. WCTM. pt tolerated medication well. noel.
[2020-09-14] MEDS ORDERED: KETOROLAC 30 MG/1 ML IM ONE (20:30)
[2020-09-14 21:27] VITALS: BP 142/83
== END 2020-09-14 22:03 | disposition home or self-care (01) ==
LOC: ED 19:46
DX: M19.012 Primary osteoarthritis, left shoulder (principal); M25.512 Pain in left shoulder; I10 Essential (primary) hypertension
CPT/HCPCS: 73030; 96372; 99283; J1885

== ENCOUNTER 2020-09-23 13:01 | Emergency (ER) | payer MEDICARE ==
[~2020-09-23] VITALS: Ht 149.9 cm; Wt 51.9 kg
--- NOTE | 2020-09-23 13:06 | NUR ---
PT NOT IN LOBBY X 1.
[2020-09-23] MEDS ORDERED: ACETAMINOPHEN 500 MG TABLET ONE (13:29)
[2020-09-23] MEDS ORDERED: ACETAMINOPHEN 500 MG TABLET PO ONE (13:30)
--- NOTE | 2020-09-23 14:02 | NUR ---
PT MEDICATED FOR PAIN PER ORDERS. PT OK FOR D/C PER ERMD. PT GIVEN CAB VOUCHER PER REQUEST. PT WITH STEADY GAIT AND HAS ALL OWN BELONGINGS UPON D/C.
[2020-09-23 14:03] VITALS: BP 160/100
== END 2020-09-23 14:04 | disposition home or self-care (01) ==
LOC: ED 13:40
DX: M25.512 Pain in left shoulder (principal); I10 Essential (primary) hypertension; J45.909 Unspecified asthma, uncomplicated; M19.90 Unspecified osteoarthritis, unspecified site; Z90.49 Acquired absence of other specified parts of digestive tract
CPT/HCPCS: 93005; 99283

== ENCOUNTER 2020-10-31 22:06 | Emergency (ER) | payer MEDICARE ==
[~2020-10-31] VITALS: Ht 152.4 cm; Wt 52.2 kg
[2020-10-31 22:20] VITALS: BP 206/113
== END 2020-10-31 23:08 | disposition home or self-care (01) ==
LOC: ED 22:36
DX: I10 Essential (primary) hypertension (principal); K59.00 Constipation, unspecified; R10.9 Unspecified abdominal pain; R94.31 Abnormal electrocardiogram [ECG] [EKG]; E78.5 Hyperlipidemia, unspecified; Z86.39 Personal history of other endocrine, nutritional and metabolic disease; J45.909 Unspecified asthma, uncomplicated; Z90.89 Acquired absence of other organs; Z90.49 Acquired absence of other specified parts of digestive tract; Z90.710 Acquired absence of both cervix and uterus
CPT/HCPCS: 93005; 99283

== ENCOUNTER 2020-11-02 13:16 | Emergency (ER) | payer MEDICARE ==
[~2020-11-02] VITALS: Ht 152.4 cm; Wt 50.0 kg
--- NOTE | 2020-11-02 13:16 | NUR ---
BRUCE FROM C/O RT ELBOW PAIN & GEN WEAKNESS S/P GLF R/T SYNCOPAL EDIPSODE TODAY, DENIES HEAD INJ, NO DEFORMITY TO RUE NOTED; PIV & BG 96 FIELD MARKETING COORDINATOR PER EMS- NO OTHER INTERVENTIONS; PT STATES "I DON'T KNOW IF IT'S MY BLOOD PRESSURE BECUAES IT KEEPS GOING UP & DOWN AND MY DR KEEPS HAVING TO CHANGE MY LISINOPRIL BETWEEN 5-10 MG. I' VE BEEN ON 5 FOR THE LAST COUPLE OF WKS"; PT CHANGED INTO GOWN, MONITORS IN PLACE, RESPONDS APPROP TO STAFF, NAD, COMFORT MEASURE SPROVIDED, CALL LIGHT WITHIN REACH.
[2020-11-02 14:01] VITALS: BP 188/111
--- NOTE | 2020-11-02 14:01 | NUR ---
PT AMBULATED TO STEADILY ACCOMPANIED BY TECH, BACK TO [facility] WITH NEG ORTHO BP'S, AWAKE & COMFORTABLE, RESPONDS APPROP TO STAFF, NAD, COMFORT MEASURES PROVIDED, CALL LIGHT WITHIN REACH.
[2020-11-02 14:03] LABS: BASOPHILS % (AUTO) 1 % (0-1); EOSINOPHILS % (AUTO) 1 % (1-7); LYMPHOCYTES % (AUTO) 37 % (22-44); MEAN CORPUSCULAR HEMOGLOBIN 30.9 pg (27.0-34.8); MEAN CORPUSCULAR HGB CONC 33.9 g/dL (32.4-35.8); MEAN PLATELET VOLUME 7.8 fL (7.4-10.4); MONOCYTES % (AUTO) 6 % (2-9); NEUTROPHILS % (AUTO) 56 % (42-75); PLATELET COUNT 169 x10^3/uL (130-400); RED BLOOD COUNT 4.69 x10^6/uL (3.82-5.3); RED CELL DISTRIBUTION WIDTH 13.7 % (9.6-15.2)
[2020-11-02 14:10] LABS: ALANINE AMINOTRANSFERASE 28 U/L (12-78); ALBUMIN 3.9 g/dL (3.4-5.0); ANION GAP 7 mmol/L (5-15); CALCIUM 8.7 mg/dL (8.5-10.1); CHLORIDE 105 mmol/L (98-107); CREATININE 0.71 mg/dL (0.55-1.02)
[2020-11-02 14:12] LABS: ALKALINE PHOSPHATASE 38 U/L (45-117); BILIRUBIN,TOTAL 1.4 mg/dL (0.2-1.0); TOTAL PROTEIN 7.4 g/dL (6.4-8.2)
--- NOTE | 2020-11-02 14:59 | NUR ---
Patient given discharge instructions and they have confirmed that they understand the instructions. Patient ambulatory with steady gait. NAD, all questions answered appropriately, denies additional needs at this time. No personal belongings left in room after discharge.
== END 2020-11-02 14:59 | disposition home or self-care (01) ==
LOC: ED 14:57
DX: S50.01XA Contusion of right elbow, initial encounter (principal); R55 Syncope and collapse; I10 Essential (primary) hypertension; E78.5 Hyperlipidemia, unspecified; M19.90 Unspecified osteoarthritis, unspecified site; Z90.49 Acquired absence of other specified parts of digestive tract; X58.XXXA Exposure to other specified factors, initial encounter; Y93.89 Activity, other specified; Y92.89 Other specified places as the place of occurrence of the external cause; Y99.8 Other external cause status
CPT/HCPCS: 36415; 71045; 80053; 85025; 93005; 99285

== ENCOUNTER 2020-11-04 01:32 | Emergency (ER) | payer MEDICARE ==
[~2020-11-04] VITALS: Ht 152.4 cm; Wt 50.0 kg
--- NOTE | 2020-11-04 01:41 | NUR ---
ASSUMED CARE OF PATIENT. PATIENT BIB [facility] FOR [place] CHEST PAIN 12/15. PT WAS GIVEN 324 OF ASA AND 0.4 MG OF NITRO. PT NOW REPORTS SHE IS OUT OF PAIN. VS STABLE. COOPERATIVE EXTENSION AGENT ON. NSR NOTED. CALL LIGHT IN PLACE. WILL CONTINUE TO MONITOR.
[2020-11-04] MEDS ORDERED: LISI-167 PO (01:44)
[2020-11-04] MEDS ORDERED: LABETALOL 5MG/ML, 20ML IVPush ONE (02:00)
--- NOTE | 2020-11-04 02:00 | NUR ---
REPORT GIVEN TO UVALDO MAZA
--- NOTE | 2020-11-04 02:00 | NUR ---
FIRST CONTACT WITH PATIENT. PATIENT REQUESTED TO GO TO THE BATHROOM. DENIES ANY OTHER NEEDS AT THIS TIME. SBP 160S. WILL HOLD LABETALOL. WILL CONTINUE TO MONITOR AND ASSIST PATIENT TO BATHROOM.
[2020-11-04 02:25] LABS: BASOPHILS % (AUTO) 0 % (0-1); EOSINOPHILS % (AUTO) 1 % (1-7); LYMPHOCYTES % (AUTO) 47 % (22-44); MEAN CORPUSCULAR HEMOGLOBIN 30.9 pg (27.0-34.8); MEAN CORPUSCULAR HGB CONC 33.6 g/dL (32.4-35.8); MEAN PLATELET VOLUME 7.8 fL (7.4-10.4); MONOCYTES % (AUTO) 6 % (2-9); NEUTROPHILS % (AUTO) 46 % (42-75); PLATELET COUNT 151 x10^3/uL (130-400); RED BLOOD COUNT 4.54 x10^6/uL (3.82-5.3); RED CELL DISTRIBUTION WIDTH 13.8 % (9.6-15.2)
[2020-11-04 02:38] LABS: ALBUMIN 3.3 g/dL (3.4-5.0); ANION GAP 5 mmol/L (5-15); CALCIUM 8.2 mg/dL (8.5-10.1); CHLORIDE 105 mmol/L (98-107); CREATININE 0.91 mg/dL (0.55-1.02)
[2020-11-04 02:42] LABS: TROPONIN I < 0.015 ng/mL (0.000-0.045)
[2020-11-04 03:22] VITALS: BP 161/83
--- NOTE | 2020-11-04 03:56 | NUR ---
ASSISTED PATIENT TO BATHROOM AT THIS TIME. AWAITING REPEAT TROP AT 0415. WILL CONTINUE TO MONITOR.
[2020-11-04 04:33] LABS: TROPONIN I < 0.015 ng/mL (0.000-0.045)
== END 2020-11-04 05:01 | disposition home or self-care (01) ==
LOC: ED 01:45
DX: R07.89 Other chest pain (principal); R94.31 Abnormal electrocardiogram [ECG] [EKG]; I10 Essential (primary) hypertension; E78.5 Hyperlipidemia, unspecified; M19.90 Unspecified osteoarthritis, unspecified site; J45.909 Unspecified asthma, uncomplicated; Z90.89 Acquired absence of other organs; Z90.49 Acquired absence of other specified parts of digestive tract; Z90.710 Acquired absence of both cervix and uterus
CPT/HCPCS: 36415; 71045; 80048; 82040; 84484; 85025; 93005; 99285

== ENCOUNTER 2020-11-09 23:05 | Emergency (ER) | payer MEDICARE ==
[~2020-11-09] VITALS: Ht 160 cm; Wt 50.0 kg
[2020-11-09] MEDS ORDERED: hydrALAzine 20 MG/ML, 1ML IV ONE (23:30)
[2020-11-09] MEDS ORDERED: hydrALAzine 20 MG/ML, 1ML ONE (23:33)
[2020-11-10] MEDS ORDERED: ACETAMINOPHEN 325 MG TABLET ONE (00:17)
[2020-11-10 00:19] VITALS: BP 157/80
[2020-11-10] MEDS ORDERED: ACETAMINOPHEN 325 MG TABLET PO ONE (00:30)
== END 2020-11-10 01:00 | disposition home or self-care (01) ==
LOC: ED 23:10
DX: I10 Essential (primary) hypertension (principal); J45.909 Unspecified asthma, uncomplicated; E78.5 Hyperlipidemia, unspecified; M19.90 Unspecified osteoarthritis, unspecified site; Z90.49 Acquired absence of other specified parts of digestive tract
CPT/HCPCS: 96374; 99283; J0360

== ENCOUNTER 2020-11-10 18:02 | Emergency (ER) | payer MEDICARE ==
[~2020-11-10] VITALS: Ht 152.4 cm; Wt 50.0 kg
[2020-11-10 20:18] LABS: BASOPHILS % (AUTO) 0 % (0-1); EOSINOPHILS % (AUTO) 1 % (1-7); LYMPHOCYTES % (AUTO) 41 % (22-44); MEAN CORPUSCULAR HEMOGLOBIN 31.1 pg (27.0-34.8); MEAN CORPUSCULAR HGB CONC 33.6 g/dL (32.4-35.8); MEAN PLATELET VOLUME 7.7 fL (7.4-10.4); MONOCYTES % (AUTO) 7 % (2-9); NEUTROPHILS % (AUTO) 51 % (42-75); PLATELET COUNT 213 x10^3/uL (130-400); RED BLOOD COUNT 4.84 x10^6/uL (3.82-5.3)
[2020-11-10 20:26] LABS: ALANINE AMINOTRANSFERASE 26 U/L (12-78); ALBUMIN 3.9 g/dL (3.4-5.0); ANION GAP 7 mmol/L (5-15); CHLORIDE 102 mmol/L (98-107)
[2020-11-10 20:28] LABS: ALKALINE PHOSPHATASE 36 U/L (45-117); BILIRUBIN,TOTAL 1.2 mg/dL (0.2-1.0); TOTAL PROTEIN 7.7 g/dL (6.4-8.2)
--- NOTE | 2020-11-10 20:41 | NUR ---
PT MOVED TO BED
[2020-11-10] MEDS ORDERED: AMLODIPINE 5 MG TABLET ONE (21:15)
[2020-11-10 21:17] VITALS: BP 167/96
[2020-11-10] MEDS ORDERED: AMLODIPINE 5 MG TABLET PO ONE (21:30)
== END 2020-11-10 21:35 | disposition home or self-care (01) ==
LOC: ED 21:07
DX: I10 Essential (primary) hypertension (principal); R51.9 Headache, unspecified
CPT/HCPCS: 36415; 70450; 80053; 85025; 93005; 99285

== ENCOUNTER 2020-11-13 02:34 | Emergency (ER) | payer MEDICARE ==
[~2020-11-13] VITALS: Ht 152.4 cm; Wt 51.0 kg
[2020-11-13] MEDS ORDERED: SODIUM CHLORIDE FLUSH 10ML SYR IVF ONE (03:00)
--- NOTE | 2020-11-13 03:05 | NUR ---
REPORT RECEIVED FROM DOMINGA RNLUIS RN, PT RESTING ON [place], NAD, NO CHANGE IN CONDITION, APPEARS COMFORTABLE, WAITING FOR LABS AND RAD READ, WCTM. Patient is resting comfortably in bed. Bed in lowest, rails engaged, call light on lap.
[2020-11-13 03:57] LABS: BASOPHILS % (AUTO) 0 % (0-1); EOSINOPHILS % (AUTO) 1 % (1-7); LYMPHOCYTES % (AUTO) 38 % (22-44); MEAN CORPUSCULAR HEMOGLOBIN 31.4 pg (27.0-34.8); MEAN CORPUSCULAR HGB CONC 34.4 g/dL (32.4-35.8); MEAN PLATELET VOLUME 7.6 fL (7.4-10.4); MONOCYTES % (AUTO) 9 % (2-9); NEUTROPHILS % (AUTO) 52 % (42-75); PLATELET COUNT 186 x10^3/uL (130-400); RED BLOOD COUNT 4.04 x10^6/uL (3.82-5.3); RED CELL DISTRIBUTION WIDTH 13.5 % (9.6-15.2)
[2020-11-13 04:06] LABS: ALANINE AMINOTRANSFERASE 19 U/L (12-78); ANION GAP 5 mmol/L (5-15); CALCIUM 8.2 mg/dL (8.5-10.1); CHLORIDE 105 mmol/L (98-107)
[2020-11-13 04:10] LABS: ALKALINE PHOSPHATASE 30 U/L (45-117); BILIRUBIN,TOTAL 0.7 mg/dL (0.2-1.0); TROPONIN I < 0.015 ng/mL (0.000-0.045)
[2020-11-13 04:55] VITALS: BP 120/67
--- NOTE | 2020-11-13 05:18 | NUR ---
Patient given discharge instructions and they have confirmed that they understand the instructions. Patient ambulatory with steady gait. NAD, all questions answered appropriately, denies additional needs at this time. No personal belongings left in room after discharge. PROVIDED TAXI VOUCHER FOR [employer].
== END 2020-11-13 05:19 | disposition home or self-care (01) ==
LOC: ED 05:06
DX: R07.2 Precordial pain (principal); R94.31 Abnormal electrocardiogram [ECG] [EKG]; E78.5 Hyperlipidemia, unspecified; J45.909 Unspecified asthma, uncomplicated; M19.90 Unspecified osteoarthritis, unspecified site; Z86.39 Personal history of other endocrine, nutritional and metabolic disease; Z90.89 Acquired absence of other organs; Z90.49 Acquired absence of other specified parts of digestive tract; Z90.710 Acquired absence of both cervix and uterus
CPT/HCPCS: 36415; 71045; 80053; 84484; 85025; 93005; 99285